=== PATIENT | female | born 1940 | race Hispanic/Latino ===

== ENCOUNTER 2021-10-02 13:51 | Observation (INO) | payer MEDICARE ==
[2021-10-02] MEDS ORDERED: DUONEB 0.5-3 MG/3 ml Neb IH ONE ×2 (15:27→15:42)
[2021-10-02 15:36] LABS: Absolute Neutrophil Ct (ANC) 4.53 (1.4-6.9); Basophil (Absolute #) 0.01 (0-0.4); Eosinophil % 0.2 % (0.00-5.0); Eosinophil (Absolute #) 0.01 (0-0.5); Hematocrit 43.4 % (35-47); Hemoglobin 13.6 gm/dl (12.0-16.0); Lymphocyte (Absolute #) 0.74 (1.0-4.6); Lymphocytes % 13.1 % (24.0-44.0); Mean Corpuscular Hemoglobin 27.6 pg (26-32); Mean Corpuscular Hgb Concent. 31.3 g/dl (32-36); Mean Platelet Volume 11.6 fl (7.5-11.0); Monocyte (Absolute #) 0.37 (0.0-1.3); Monocytes % 6.5 % (0.0-12.0); Platelet Count 151 K/mm3 (150-450); Red Blood Count 4.93 M/mm3 (4.1-5.4); Red Cell Distribution Width 14.8 % (11.5-14.0); White Blood Count 5.7 K/mm3 (4.0-10.5)
[2021-10-02] MEDS ORDERED: DECADRON 10MG INJ. IV ONE (15:42)
--- NOTE | 2021-10-02 15:44 | ERPHSYRPT ---
- History of Present Illness Time Seen by Provider: 10/02/21 14:56 Historian: patient Exam Limitations: no limitations Patient Subjective Stated Complaint: "I can't breath." Triage Nursing Assessment: 80 y/o female with significant PMH of COPD, HTN, CVA, and GERD. She uses PRN supplemental oxygen 2 L/min via NC at night. Reported having increased cough, dyspnea, and left sided chest pain at home. Took a home COVID test on 10/02/21 and was positive. Has had to use her home O2 throghout the day d/t the increased dyspnea. Pain described as pressure and non- radiating. Denied nausea/vomiting/diarrhea/dysuria. Pupils 3mm bilateral. Oral mucosa pink/moist without ulcerations/lesions. Neck supple without JVD/bruits/thrills. Symmetrical chest expansion. heart tone S1/S2 RRR without extra sounds. Lungs with insp/exp coarse wheezes and diminished movement in the bases. Abdomen soft non-distened, non-surgical, and without peritoneal signs. bowel sounds present. No organomegaly/pulsatile masses. peripheral pulses +2 bilateral without dependent edema. Physician History: Patient is 80-year-old female presents to our ED with complaints of shortness of breath. Patient has a history of COPD. Patient recently tested Covid positive. Patient requires oxygen at home as needed. Patient states her shortness of breath is requiring oxygen for improvement. Symptoms are constant. Symptoms have been ongoing for 1 day. Shortness of breath associated with a dry nonproductive cough. Symptoms are moderate in intensity. Exertion worsens symptoms. Patient is also experiencing left-sided chest pressure. Patient voices no other complaints concerns at this time. Timing/Duration: yesterday Activities at Onset: none Quality: aching Location: substernal Chest Pain Radiation: no radiation Severity of Pain-Max: moderate Severity of Pain-Current: mild Modifying Factors: Improves With: nothing Associated Symptoms: shortness of breath Prior Chest Pain/Cardiac Workup: no prior chest pain Nitro Today/Relief: no nitro taken today Aspirin Treatment Today: no aspirin today Allergies/Adverse Reactions: No Known Drug Allergies Allergy (Verified 10/02/21 15:13) Home Medications: Omeprazole 20 MG [Prilosec 20 mg] 20 mg PO BID 07/26/12 [History] Ferrous Sulfate 325 mg PO DAILY 10/02/21 [History] Fluticasone/Umeclidin/Vilanter [Trelegy Ellipta 100-62.5-25] 1 puff IH BID 10/02/21 [History] Meloxicam 7.5 mg PO DAILY 10/02/21 [History] Metformin HCl 500 mg [Glucophage 500 MG] 500 mg PO BIDWM 10/02/21 [History] Hx Tetanus, Diphtheria Vaccination/Date Given: (UNKNOWN) Hx Influenza Vaccination/Date Given: Yes (2012) Hx Pneumococcal Vaccination/Date Given: No (UNKNOWN) Travel Risk - International Travel Have you traveled outside of the country in past 3 weeks: No - Coronavirus Screening Are you exhibiting any of the following symptoms?: Yes Symptoms: Cough: New Onset, Shortness of Breath Close contact with a COVID-19 positive Pt in past 14-21 Days: No - Vaccine Status Have you recieved a Covid-19 vaccination: No - Review of Systems Constitutional: No Symptoms, No Fever, No Chills Eyes: No Symptoms Ears, Nose, & Throat: No Symptoms Respiratory: No Symptoms, No Cough, No Dyspnea Cardiac: No Symptoms, No Chest Pain, No Edema, No Syncope Abdominal/Gastrointestinal: No Symptoms, No Abdominal Pain, No Nausea, No Vomiting, No Diarrhea Genitourinary Symptoms: No Symptoms, No Dysuria Musculoskeletal: No Symptoms, No Back Pain, No Neck Pain Skin: No Symptoms, No Rash Neurological: No Symptoms, No Dizziness, No Focal Weakness, No Sensory Changes Psychological: No Symptoms Endocrine: No Symptoms Hematologic/Lymphatic: No Symptoms Immunological/Allergic: No Symptoms All Other Systems: Reviewed and Negative - Past Medical History Pertinent Past Medical History: Yes Neurological History: Stroke ENT History: No Pertinent History Cardiac History: Hypertension Respiratory History: COPD Endocrine Medical History: Diabetes Type II Musculoskeletal History: Arthritis GI Medical History: GERD History: No Pertinent History Psycho-Social History: Anxiety, Depression Female Reproductive Disorders: No Pertinent History Other Medical History: PT POOR HISTORIAN - Past Surgical History Past Surgical History: Yes Neuro Surgical History: No Pertinent History Cardiac: Other Respiratory: No Pertinent History Gastrointestinal: Appendectomy Female Surgical History: Hysterectomy Other Surgical History: PT states has a filter - Social History Smoking Status: Former smoker Exposure to second hand smoke: Yes Drug Use: none Patient Lives Alone: No - Female History Hx Now: No - Nursing Vital Signs Nursing Vital Signs: Initial Vital Signs Pulse Rate 95 H 10/02/21 14:52 Respiratory Rate 16 10/02/21 14:52 Blood Pressure 110/63 10/02/21 14:52 O2 Sat by Pulse Oximetry 92 L 10/02/21 14:52 Pain Scale Pain Intensity 6 - Physical Exam General Appearance: no apparent distress, alert Eye Exam: PERRL/EOMI, eyes nml inspection Ears, Nose, Throat Exam: normal ENT inspection, moist mucous membranes Neck Exam: normal inspection, non-tender, supple, full range of motion Respiratory Exam: normal breath sounds, lungs clear, No respiratory distress Cardiovascular Exam: regular rate/rhythm, normal heart sounds Gastrointestinal/Abdomen Exam: soft, No tenderness, No mass Back Exam: normal inspection, No CVA tenderness, No vertebral tenderness Extremity Exam: normal inspection, normal range of motion Neurologic Exam: alert, oriented x 3, cooperative, normal mood/affect, sensation nml, No motor deficits Skin Exam: normal color, warm, dry SpO2: 92 - Course Nursing assessment & vital signs reviewed: Yes EKG Interpreted by Me: RATE (95), Sinus Rhythm, NORMAL AXIS, NORMAL INTERVALS (Old inferior infarct anterior Q waves possibly due to LVH.) - Radiology Exams Chest X-ray Interpretation: Interpreted by me (Patchy opacity left lower lung. Bibasilar atelectasis. Normal cardiac silhouette. Osteopenia. Intact bony thorax.) Ordered Tests: Active Orders 24 hr Category Date Time Status First Calender Worker STAT Care 10/02/21 15:29 Active Cath for Specimen-Straight STAT Care 10/02/21 15:29 Active EKG-ER Only STAT Care 10/02/21 15:27 Active IV Insertion STAT Care 10/02/21 15:27 Active Pulse Oximetry (ED) STAT Care 10/02/21 15:27 Active CHEST 1 VIEW (PORTABLE) Stat Exams 10/02/21 15:28 Completed BLOOD CULTURE Stat Lab 10/02/21 14:00 Received BLOOD CULTURE Stat Lab 10/02/21 17:20 Received CBC W DIFF Stat Lab 10/02/21 15:00 Completed CMP Stat Lab 10/02/21 15:00 Completed Lactic Acid Stat Lab 10/02/21 15:27 Completed NT PRO BNP Stat Lab 10/02/21 15:00 Completed TROPONIN Q3H Lab 10/02/21 15:00 Completed TROPONIN Q3H Lab 10/02/21 18:30 Ordered TROPONIN Q3H Lab 10/02/21 21:30 Ordered TROPONIN Q3H Lab 10/03/21 00:30 Ordered TROPONIN Q3H Lab 10/03/21 03:30 Ordered Respiratory Therapy Assessment ONCE RT 10/02/21 15:54 Completed Medication Summary Discontinued Medications Generic Name Dose Route Start Last Admin Trade Name Mitulq PRN Reason Stop Dose Admin Albuterol/Ipratropium 3 ml 10/02/21 15:27 10/02/21 15:53 Ipratropium/Albuterol Sulfate 3 Ml Ampul.Neb IH 10/02/21 15:28 3 ml STAT ONE Administration Albuterol/Ipratropium Confirm 10/02/21 15:42 Ipratropium/Albuterol Sulfate 3 Ml Ampul.Neb Administered 10/02/21 15:43 Dose 3 ml IH .STK-MED ONE Dexamethasone Sodium Phosphate 8 mg 10/02/21 15:42 10/02/21 15:56 Dexamethasone Sod Phosphate 10 Mg/Ml IV 10/02/21 15:43 8 mg STAT ONE Administration Dexamethasone Sodium Phosphate Confirm 10/02/21 15:54 Dexamethasone Sod Phosphate 10 Mg/Ml Administered 10/02/21 15:55 Dose 10 mg .ROUTE .STK-MED ONE Azithromycin 500 mg in 250 mls @ 250 mls/hr 10/02/21 16:20 10/02/21 17:33 Zithromax 500 Mg/ 250 Ml Nacl Premix IV 10/02/21 17:19 250 mls/hr STAT STA 250 mls/hr Administration Ceftriaxone Sodium/Dextrose 2 g in 50 mls @ 100 mls/hr 10/02/21 16:20 10/02/21 17:32 Rocephin 2 Gm-D5w 50ml Bag IV 10/02/21 16:49 100 mls/hr STAT STA 100 mls/hr Administration Azithromycin Confirm 10/02/21 17:31 Zithromax 500 Mg/ 250 Ml Nacl Premix Administered 10/02/21 17:32 Dose 500 mg in 250 mls @ ud IV .STK-MED ONE Ceftriaxone Sodium/Dextrose Confirm 10/02/21 17:31 Rocephin 2 Gm-D5w 50ml Bag Administered 10/02/21 17:32 Dose 2 g in 50 mls @ ud IV .STK-MED ONE Ondansetron HCl 4 mg 10/02/21 17:15 10/02/21 17:32 Ondansetron Hcl 4 Mg/2 Ml Vial IV 10/02/21 17:16 4 mg STAT ONE Administration Ondansetron HCl Confirm 10/02/21 17:31 Ondansetron Hcl 4 Mg/2 Ml Vial Administered 10/02/21 17:32 Dose 4 mg .ROUTE .STK-MED ONE Lab/Rad Data: Laboratory Result Diagrams 10/02/21 15:00 10/02/21 15:00 Laboratory Results 10/02/21 10/02/21 10/02/21 Range/Units 16:28 15:27 15:00 WBC (4.0-10.5) K/mm3 RBC (4.1-5.4) M/mm3 Hgb (12.0-16.0) gm/dl Hct (35-47) % MCV (78-100) fl MCH (26-32) pg MCHC (32-36) g/dl RDW (11.5-14.0) % Plt Count (150-450) K/mm3 MPV (7.5-11.0) fl Gran % (36.0-66.0) % Eos # (Auto) (0-0.5) Absolute Lymphs (auto) (1.0-4.6) Absolute Monos (auto) (0.0-1.3) Lymphocytes % (24.0-44.0) % Monocytes % (0.0-12.0) % Eosinophils % (0.00-5.0) % Basophils % (0.0-0.4) % Absolute Granulocytes (1.4-6.9) Basophils # (0-0.4) Sodium (137-145) mmol/L Potassium (3.5-5.1) mmol/L Chloride (98-107) mmol/L Carbon Dioxide (22-30) mmol/L Anion Gap (5-15) MEQ/L BUN (7-17) mg/dL Creatinine (0.52-1.04) mg/dL Estimated GFR ML/MIN Glucose (74-106) mg/dL Lactic Acid 1.4 (0.4-2.0) Calcium (8.4-10.2) mg/dL Total Bilirubin (0.2-1.3) mg/dL AST (14-36) U/L ALT (0-35) U/L Alkaline Phosphatase (38-126) U/L Troponin I 0.026 (0.000-0.034) ng/mL NT-Pro-B Natriuret Pep (0-1800) pg/mL Serum Total Protein (6.3-8.2) g/dL Albumin (3.5-5.0) g/dL Influenza Type A Ag NEGATIVE (NEGATIVE) Influenza Type B Ag NEGATIVE (NEGATIVE) RSV (PCR) NEGATIVE (Negative) SARS-CoV-2 (PCR) POSITIVE A (NEGATIVE) 10/02/21 10/02/21 Range/Units 15:00 15:00 WBC 5.7 (4.0-10.5) K/mm3 RBC 4.93 (4.1-5.4) M/mm3 Hgb 13.6 (12.0-16.0) gm/dl Hct 43.4 (35-47) % MCV 88.0 (78-100) fl MCH 27.6 (26-32) pg MCHC 31.3 L (32-36) g/dl RDW 14.8 H (11.5-14.0) % Plt Count 151 (150-450) K/mm3 MPV 11.6 H (7.5-11.0) fl Gran % 80.0 H (36.0-66.0) % Eos # (Auto) 0.01 (0-0.5) Absolute Lymphs (auto) 0.74 L (1.0-4.6) Absolute Monos (auto) 0.37 (0.0-1.3) Lymphocytes % 13.1 L (24.0-44.0) % Monocytes % 6.5 (0.0-12.0) % Eosinophils % 0.2 (0.00-5.0) % Basophils % 0.2 (0.0-0.4) % Absolute Granulocytes 4.53 (1.4-6.9) Basophils # 0.01 (0-0.4) Sodium 135 L (137-145) mmol/L Potassium 5.1 (3.5-5.1) mmol/L Chloride 101 (98-107) mmol/L Carbon Dioxide 23 (22-30) mmol/L Anion Gap 17.0 H (5-15) MEQ/L BUN 50 H (7-17) mg/dL Creatinine 2.81 H (0.52-1.04) mg/dL Estimated GFR 17.1 ML/MIN Glucose 149 H (74-106) mg/dL Lactic Acid (0.4-2.0) Calcium 8.9 (8.4-10.2) mg/dL Total Bilirubin 0.50 (0.2-1.3) mg/dL AST 41 H (14-36) U/L ALT 20 (0-35) U/L Alkaline Phosphatase 110 (38-126) U/L Troponin I (0.000-0.034) ng/mL NT-Pro-B Natriuret Pep 156 (0-1800) pg/mL Serum Total Protein 6.8 (6.3-8.2) g/dL Albumin 4.0 (3.5-5.0) g/dL Influenza Type A Ag (NEGATIVE) Influenza Type B Ag (NEGATIVE) RSV (PCR) (Negative) SARS-CoV-2 (PCR) (NEGATIVE) - Progress Progress: improved Air Movement: good Progress Note: Patient continues to feel short of breath. She is Covid positive. Chest x-ray shows a patchy left lower lobe opacity. Patient is hypoxic at 92%. Patient does use oxygen as needed at home. We will admit to the Covid unit. Case discussed with Dr. Talbot who accepts admission. Plan of care discussed with patient patient agrees to admission [facility] for further evaluation and treatment. Portions of this note were created with voice recognition technology. There may be grammatical, spelling, punctuation or sound alike errors 10/02/21 18:04 Blood Culture(s) Obtained: Yes Antibiotics given: Yes Will see patient in: hospital (observation) Counseled pt/family regarding: lab results, diagnosis, need for follow-up, rad results - Departure Departure Disposition: Observation Clinical Impression: Hypoxia, Acute renal injury, COPD (chronic obstructive pulmonary disease), SOB (shortness of breath) Condition: Stable Critical Care Time: No Referrals: ZAK PANIAGUA [Primary Care Provider] - Follow up/PCP as directed Instructions: Chronic Obstructive Pulmonary Disease
[2021-10-02 15:54] LABS: BILIRUBIN,TOTAL 0.5 mg/dL (0.2-1.3); Calcium 8.9 mg/dL (8.4-10.2); Creatinine 1 2.81 mg/dL (0.52-1.04); EST GLOMERULAR FILTRATION RATE 17.1 ML/MIN; Potassium 5.1 mmol/L (3.5-5.1); Total Protein 6.8 g/dL (6.3-8.2)
[2021-10-02] MEDS ORDERED: DECADRON 10MG INJ. ONE (15:54)
[2021-10-02] MEDS ORDERED: Zithromax 500 MG/ 250 ML NaCl Premix 500 MG/250 ML IVPB IV STA (16:20)
[2021-10-02] MEDS ORDERED: ROCEPHIN 2 Gm-D5w 50ML BAG** 2 G/50 ML IVPB IV STA (16:20)
--- NOTE | 2021-10-02 16:29 | XRAY ---
Indication: Short of breath. Suspect Covid 19. Comparison: July 26, 2012. Portable chest again demonstrates left mid to lower lung infiltrate/atelectasis. New right base subsegmental atelectasis/scarring. Remaining heart and upper lungs unremarkable. Bony thorax intact again with osteopenia, degenerative changes, and scoliosis.
[2021-10-02 17:15] LABS: INFLUENZA A NEGATIVE (NEGATIVE); INFLUENZA B NEGATIVE (NEGATIVE); RESPIRATORY SYNCTIAL VIRUS NEGATIVE (Negative)
[2021-10-02] MEDS ORDERED: Zofran 4 MG/2 ML VIAL IV ONE (17:15)
[2021-10-02 17:21] LABS: SARS-CoV-2 Xpert Express POSITIVE (NEGATIVE)
[2021-10-02] MEDS ORDERED: Zofran 4 MG/2 ML VIAL ONE (17:31)
[2021-10-02] MEDS ORDERED: Zithromax 500 MG/ 250 ML NaCl Premix 500 MG/250 ML IVPB IV ONE (17:31)
[2021-10-02] MEDS ORDERED: ROCEPHIN 2 Gm-D5w 50ML BAG** 2 G/50 ML IVPB IV ONE (17:31)
[2021-10-02] MEDS ORDERED: ENOXAPARIN SODIUM SQ ONE (18:28)
[2021-10-02] MEDS ORDERED: TYLENOL 325 MG PO PRN (20:05)
[2021-10-02] MEDS ORDERED: VENTOLIN COMMON CANISTER IH PRN (20:05)
[2021-10-02] MEDS ORDERED: REMDESIVIR 200 MG in Sodium Chloride 0.9% 250 ML 250 ML IV ONE (20:54)
[2021-10-02] MEDS ORDERED: Ativan 2 MG/1 ML VIAL IV PRN (20:54)
[2021-10-02] MEDS ORDERED: HYDROCODONE-CHLORPHEN ER SUSP PO PRN (20:54)
[2021-10-02] MEDS ORDERED: TYLENOL EXTRA STRENGTH 500 MG PO PRN (20:54)
[2021-10-02] MEDS ORDERED: Ativan 1 MG PO PRN (20:54)
[2021-10-02] MEDS ORDERED: Sodium Chloride 0.9% 250 ML 250 ML IV ONE (21:02)
[2021-10-02] MEDS ORDERED: REMDESIVIR IV ONE (21:02)
[2021-10-03 04:50] LABS: Absolute Neutrophil Ct (ANC) 2.22 (1.4-6.9); Basophil (Absolute #) 0 (0-0.4); Eosinophil (Absolute #) 0 (0-0.5); Hematocrit 41.2 % (35-47); Hemoglobin 12.8 gm/dl (12.0-16.0); Lymphocyte (Absolute #) 0.45 (1.0-4.6); Lymphocytes % 16.1 % (24.0-44.0); Mean Cell Volume 89.4 fl (78-100); Mean Corpuscular Hemoglobin 27.8 pg (26-32); Mean Corpuscular Hgb Concent. 31.1 g/dl (32-36); Mean Platelet Volume 11.3 fl (7.5-11.0); Monocyte (Absolute #) 0.12 (0.0-1.3); Monocytes % 4.3 % (0.0-12.0); Neutrophil % 79.6 % (36.0-66.0); Platelet Count 142 K/mm3 (150-450); Red Blood Count 4.61 M/mm3 (4.1-5.4); Red Cell Distribution Width 14.7 % (11.5-14.0); White Blood Count 2.8 K/mm3 (4.0-10.5)
[2021-10-03 04:59] LABS: ALBUMIN 3.7 g/dL (3.5-5.0); ANION GAP 15.4 MEQ/L (5-15); BILIRUBIN,TOTAL 0.3 mg/dL (0.2-1.3); Creatinine 1 2.55 mg/dL (0.52-1.04); EST GLOMERULAR FILTRATION RATE 19.2 ML/MIN; Potassium 5.1 mmol/L (3.5-5.1); Total Protein 6.5 g/dL (6.3-8.2)
[2021-10-03] MEDS ORDERED: ADVAIR/WIXELLA 250-50 DISKUS 14 DOSE IH SCH (07:00)
[2021-10-03 07:24] VITALS: BP 160/88; PULSE 76; O2SAT 92
[2021-10-03] MEDS ORDERED: HUMALOG SQ PRN (07:32)
[2021-10-03] MEDS ORDERED: ENOXAPARIN SODIUM SQ SCH (10:00)
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
[2021-10-03] MEDS ORDERED: REMDESIVIR 100 MG in Sodium Chloride 0.9% 100 ML BAG 100 ML IV SCH (21:00)
== END 2021-10-03 11:10 | disposition home or self-care (01) ==
LOC: ED 13:51 → MED SURG 19:35
PROVIDERS: ADMIT Family Medicine; ATTEND Family Medicine
DX: U07.1 COVID-19 (principal); J44.1 Chronic obstructive pulmonary disease with (acute) exacerbation; F32.A Depression, unspecified; I10 Essential (primary) hypertension; E11.9 Type 2 diabetes mellitus without complications; Z99.81 Dependence on supplemental oxygen; Z79.899 Other long term (current) drug therapy
CPT/HCPCS: 0241U; 36000; 36415; 71045; 80053; 82947; 83605; 83880; 84484; 85025; 85379; 87040; 93005; 93041; 93268; 94640; 94760; 94762; 96365; 96372; 96374; 96375; 99285; G0378; J0248; J0456; J0696; J1100; J1650; J1817; J2405; A9270-GY

== ENCOUNTER 2021-11-21 13:40 | Emergency (ER) | payer MEDICARE ==
--- NOTE | 2021-11-21 13:43 | ERPHSYRPT ---
- History of Present Illness Time Seen by Provider: 11/21/21 13:42 Source: patient Exam Limitations: other (Patient is poor historian) Physician History: This is an 81-year-old female who is a poor historian and presents with left lateral hip pain. Patient had a left hip surgery done within the last couple months out of [facility]. Patient does not know the specifics at this time. Patient has a history of gastroesophageal reflux disease, diabetes, hypertension, anxiety, depression, COPD (as needed oxygen use) and TIAs. Patient's family did report that the patient sits in her chair often and has had a heating pad to the skin of the left hip on occasion. In the last couple days they noticed blistering and redness of the skin to the lateral aspect of the left hip. Patient does ambulate with a walker. Timing/Duration: day(s) (2 days) Context: other (No fall or injury) Quality: burning, sharpness Hip Pain Location: hip (L) Severity of Pain-Max: mild Severity of Pain-Current: mild Modifying Factors: Improves With: movement Allergies/Adverse Reactions: No Known Drug Allergies Allergy (Verified 11/21/21 13:51) Home Medications: Cholecalciferol (Vitamin D3) [Vitamin D] 50,000 unit PO WEEKLY 10/02/21 [History] Ferrous Sulfate 325 mg PO DAILY 10/02/21 [History] Lisinopril 10 mg [Zestril 10 MG] 20 mg PO DAILY 10/02/21 [History] Metformin HCl 500 mg [Glucophage 500 MG] 500 mg PO BIDWM 10/02/21 [History] Hx Tetanus, Diphtheria Vaccination/Date Given: (UNKNOWN) Hx Influenza Vaccination/Date Given: Yes (2011) Hx Pneumococcal Vaccination/Date Given: No (UNKNOWN) Travel Risk - International Travel Have you traveled outside of the country in past 3 weeks: No - Coronavirus Screening Are you exhibiting any of the following symptoms?: No Close contact with a COVID-19 positive Pt in past 14-21 Days: No - Vaccine Status Have you recieved a Covid-19 vaccination: No - Review of Systems Constitutional: No Symptoms Eyes: No Symptoms Ears, Nose, & Throat: No Symptoms Respiratory: No Symptoms Cardiac: No Symptoms Abdominal/Gastrointestinal: No Symptoms Genitourinary Symptoms: No Symptoms Musculoskeletal: No Symptoms Skin: Cellulitis (Blisters left lateral hip with localized cellulitis) Neurological: No Symptoms Psychological: No Symptoms Endocrine: No Symptoms Hematologic/Lymphatic: No Symptoms Immunological/Allergic: No Symptoms All Other Systems: Reviewed and Negative - Past Medical History Pertinent Past Medical History: Yes Neurological History: Stroke ENT History: No Pertinent History Cardiac History: Hypertension Respiratory History: COPD Endocrine Medical History: Diabetes Type II Musculoskeletal History: Arthritis GI Medical History: GERD History: No Pertinent History Psycho-Social History: Anxiety, Depression Female Reproductive Disorders: No Pertinent History Other Medical History: PT POOR HISTORIAN - Past Surgical History Past Surgical History: Yes Neuro Surgical History: No Pertinent History Cardiac: Other Respiratory: No Pertinent History Gastrointestinal: Appendectomy Genitourinary: No Pertinent History Musculoskeletal: No Pertinent History Female Surgical History: Hysterectomy Other Surgical History: PT states has a filter - Social History Smoking Status: Former smoker Exposure to second hand smoke: No Drug Use: none Patient Lives Alone: No - Nursing Vital Signs Nursing Vital Signs: Initial Vital Signs Temperature 99.1 F 11/21/21 13:56 Pulse Rate 89 11/21/21 13:56 Respiratory Rate 18 11/21/21 13:56 Blood Pressure 170/71 11/21/21 13:56 O2 Sat by Pulse Oximetry 97 11/21/21 13:56 Pain Scale Pain Intensity 5 - Physical Exam General Appearance: no apparent distress, alert, anxiety Eye Exam: PERRL/EOMI, eyes nml inspection Ears, Nose, Throat Exam: normal ENT inspection, moist mucous membranes Neck Exam: normal inspection, non-tender, supple, full range of motion Respiratory Exam: airway intact, No chest tenderness, No respiratory distress Gastrointestinal Exam: No tenderness Pelvic Exam: not done Rectal Exam: not done Back Exam: normal inspection, normal range of motion, No CVA tenderness, No vertebral tenderness Extremity Exam: normal range of motion, pelvis stable, inflammation (Skin of left lateral hip) Neurologic Exam: alert, oriented x 3, cooperative, contract engineer II-XII nml as tested, normal mood/affect Skin Exam: other (Skin blisters left lateral hip with localized cellulitis. No palpable abscess. Surgical incision site is more medial to the blister site and it is intact without evidence of infection.) Lymphatic Exam: No adenopathy SpO2 Interpretation: normal O2 Delivery: Room Air Ordered Tests: Active Orders 24 hr Category Date Time Status IV Insertion STAT Care 11/21/21 14:46 Ordered PELVIS WITHOUT CONTRAST [CT] Stat Exams 11/21/21 14:11 Completed - Progress Progress: pain not gone completely, re-examined Progress Note: 11/21/21 14:47 CAT scan of the pelvis without contrast shows left hip surgical repair site intact. No underlying abscess. Counseled pt/family regarding: diagnosis, need for follow-up, rad results - Departure Departure Disposition: Home Clinical Impression: Cellulitis Condition: Stable Critical Care Time: No Referrals: ZAK PANIAGUA [Primary Care Provider] - Follow up/PCP as directed Additional Instructions: Keep site clean daily with soap and water. Do not use the heating pad any longer. Apply the antibiotic ointment as prescribed. Take the oral antibiotics as prescribed. Follow-up with your primary care physician for further evaluation and management. Prescriptions: Mupirocin [Bactroban OINTMENT] 1 applic TP TID 5 Days #1 unit Cephalexin Mh 500 mg [Keflex 500 mg] 500 mg PO TID #21 cap
[2021-11-21 14:02] VITALS: O2SAT 97
--- NOTE | 2021-11-21 14:38 | XRAY ---
Indication: Pain, erythema, and blistering site of left hip surgery 2 years ago. Multiple contiguous images obtained through the pelvis without contrast with special attention to the osseous structures. Sagittal and coronal reformatted images obtained. Comparison: None Osseous structures demineralized consistent with patient's age. Mild degenerative changes of visualized lower lumbar spine and both SI joints. Left total hip arthroplasty with intact bipolar prosthesis and 2 acetabular screws produces beam artifact. Tiny heterotopic ossifications lateral to the left hip joint presumed postsurgical. No acute fracture, suspicious bony lesions, or osseous destructive process. Visualized noncontrasted soft tissues demonstrates sigmoid diverticulosis, partially visualized IVC filter, and mild diffuse scattered vascular calcifications. There is no focal solid/cystic soft tissue mass or abnormal fluid collection. Impression: 1. Osteopenia, degenerative changes, and intact left total hip arthroplasty. 2. Incidental sigmoid diverticulosis and scattered arteriosclerotic calcifications. 3. Remaining CT pelvis without contrast exam is negative.
[2021-11-21] MEDS ORDERED: ROCEPHIN 1 Gm-D5w 50 ml Bag** 1 G/50 ML IVPB IV STA (14:44)
[2021-11-21] MEDS ORDERED: BACIGUENT PACKET TP ONE (14:47)
[2021-11-21] MEDS ORDERED: BACIGUENT PACKET ONE (14:48)
[2021-11-21] MEDS ORDERED: ROCEPHIN 1 Gm-D5w 50 ml Bag** 1 G/50 ML IVPB IV ONE (14:48)
[2021-11-21 15:00] VITALS: BP 151/79; PULSE 76
== END 2021-11-21 15:04 | disposition home or self-care (01) ==
LOC: ED 13:40
DX: L03.116 Cellulitis of left lower limb (principal); M25.552 Pain in left hip; I10 Essential (primary) hypertension; J44.9 Chronic obstructive pulmonary disease, unspecified; K21.9 Gastro-esophageal reflux disease without esophagitis; E11.9 Type 2 diabetes mellitus without complications; Z79.84 Long term (current) use of oral hypoglycemic drugs; Z79.899 Other long term (current) drug therapy
CPT/HCPCS: 36000; 72192; 96365; 99284; J0696; A9270-GY

== ENCOUNTER 2022-03-26 06:27 | Emergency (ER) | payer MEDICARE ==
[2022-03-26] MEDS ORDERED: Adacel Vial IM ONE ×2 (07:26→07:29)
--- NOTE | 2022-03-26 07:33 | ERPHSYRPT ---
- History of Present Illness Source: patient Exam Limitations: no limitations Patient Subjective Stated Complaint: pt states "I was taking out my trash and slipped on the steps and fell down." Triage Nursing Assessment: Pt presents to ED via SCAT 1, pt alert and oriented x 3, pt fell while taking trash out this morning and laid on the ground for about an hour until people jogging by found her on the ground, pt denies hitting head, pt has skin tear on L lower arm, bleeding controlled, pt denies any blood thinners Physician History: 81 yo F fell taking her trash out. She slipped and fell. Pt denies head injury/LOC and C-spine pain. She complains of T-spine pain, L hip pain(s/p L hip replacement), and L forearm pain. Occurred: just prior to arrival Reason for Fall: slipped Injuries/Pain Location: upper extremity (L forearm abrasion/pain), back (T-spine pain) Loss of Consciousness: no loss of consciousness Quality: aching Severity of Pain-Max: moderate Severity of Pain-Current: moderate Modifying Factors: Improves With: movement Associated Symptoms (Fall): back pain, extremity injury, No abdominal pain, No confusion, No chest pain, No dizziness, No headache, No lightheadedness, No muscle spasms, No nausea, No neck pain, No ringing in ears, No seizures, No shortness of breath, No slurred speech, No trouble walking, No vomiting, No vision changes Allergies/Adverse Reactions: No Known Drug Allergies Allergy (Verified 03/26/22 06:29) Home Medications: Cholecalciferol (Vitamin D3) [Vitamin D] 50,000 unit PO WEEKLY 10/02/21 [History] Ferrous Sulfate 325 mg PO DAILY 10/02/21 [History] Lisinopril 10 mg [Zestril 10 MG] 20 mg PO DAILY 10/02/21 [History] Metformin HCl 500 mg [Glucophage 500 MG] 500 mg PO BIDWM 10/02/21 [History] Hx Tetanus, Diphtheria Vaccination/Date Given: Yes Hx Influenza Vaccination/Date Given: Yes Hx Pneumococcal Vaccination/Date Given: No Immunizations Up to Date: No Travel Risk - International Travel Have you traveled outside of the country in past 3 weeks: No - Coronavirus Screening Are you exhibiting any of the following symptoms?: No Close contact with a COVID-19 positive Pt in past 14-21 Days: No - Vaccine Status Have you recieved a Covid-19 vaccination: Yes 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 - Vaccination Dates Dates if Unknown: unknown - Review of Systems Constitutional: No Symptoms Eyes: No Symptoms Ears, Nose, & Throat: No Symptoms Respiratory: No Symptoms Cardiac: No Symptoms Abdominal/Gastrointestinal: No Symptoms Genitourinary Symptoms: No Symptoms Musculoskeletal: No Symptoms Skin: No Symptoms Neurological: No Symptoms Psychological: No Symptoms Endocrine: No Symptoms Hematologic/Lymphatic: No Symptoms Immunological/Allergic: No Symptoms - Past Medical History Pertinent Past Medical History: Yes Neurological History: Stroke ENT History: No Pertinent History Cardiac History: Hypertension Respiratory History: COPD Endocrine Medical History: Diabetes Type II Musculoskeletal History: Arthritis GI Medical History: GERD History: No Pertinent History Psycho-Social History: Anxiety, Depression Female Reproductive Disorders: No Pertinent History Other Medical History: PT POOR HISTORIAN - Past Surgical History Past Surgical History: Yes Neuro Surgical History: No Pertinent History Cardiac: Other Respiratory: No Pertinent History Gastrointestinal: Appendectomy Genitourinary: No Pertinent History Musculoskeletal: No Pertinent History Female Surgical History: Hysterectomy Other Surgical History: PT states has a filter - Social History Smoking Status: Former smoker Exposure to second hand smoke: No Drug Use: none Patient Lives Alone: No Significant Family History: no pertinent family hx - Nursing Vital Signs Nursing Vital Signs: Initial Vital Signs Temperature 97.0 F 03/26/22 06:30 Pulse Rate 67 03/26/22 06:30 Respiratory Rate 16 03/26/22 06:30 Blood Pressure 199/77 03/26/22 06:30 O2 Sat by Pulse Oximetry 94 L 03/26/22 06:30 Pain Scale Pain Intensity 3 Hypertensive - Cristian Coma Score Best Eye Response (Cristian): (4) open spontaneously Best Verbal Response (Cristian): (5) oriented Best Motor Response ([place]): (6) obeys commands [place] Total: 15 - Physical Exam General Appearance: no apparent distress Head Injury: no evidence of injury Eye Exam: PERRL/EOMI, eyes nml inspection ENT Exam: airway nml, No evidence of ENT injury, No clear fluid (ears), No clear fluid (nose) Neck Exam: supple, trachea midline, full range of motion (C-spine NTTP) Respiratory/Chest Exam: normal breath sounds, No chest tenderness, No respiratory distress (Pt is 2L O2 NC dependent) Cardiovascular Exam: normal heart sounds, regular rate/rhythm, normal peripheral pulses, No murmur Gastrointestinal Exam: soft, normal bowel sounds, No tenderness Back Exam: vertebral tenderness (T-spine TTP/L scapular area TTP) Extremity Exam: pelvis stable (L hip TTP/No shortening or external rotation), other (L forearm abrasions and TTP) Peripheral Pulses: carotid (R): 2+, carotid (L): 2+ Neurologic Exam: alert, oriented x 3, cooperative, bead cutter II-XII nml as tested, normal mood/affect, sensation nml, No motor deficits, No sensory deficit Skin Exam: normal color, warm, dry, No rash SpO2 Interpretation: normal SpO2: 94 O2 Delivery: Nasal Cannula - Course Nursing assessment & vital signs reviewed: Yes - Radiology Exams Forearm X-ray Interpretation: Discussed w/ radiologist (L forearm neg) Femur X-ray Interpretation: Discussed w/ radiologist (L femur neg) - CT Exams Chest CT Interpretation: Discussed w/radiologist (NAD) Pelvis CT Interpretation: Tele-radiologist Report (NAD) Ordered Tests: Active Orders 24 hr Category Date Time Status CHEST WITHOUT CONTRAST [CT] Stat Exams 03/26/22 07:24 Completed FEMUR Stat Exams 03/26/22 Completed FOREARM Stat Exams 03/26/22 Completed PELVIS WITHOUT CONTRAST [CT] Stat Exams 03/26/22 07:24 Completed Medication Summary Discontinued Medications Generic Name Dose Route Start Last Admin Trade Name Stefan PRN Reason Stop Dose Admin Hydrocodone Bitart/Acetaminophen 1 tab 03/26/22 08:54 03/26/22 09:07 Hydrocodone/Apap 5/325 Mg Tablet PO 03/26/22 08:55 1 tab STAT ONE Administration Hydrocodone Bitart/Acetaminophen Confirm 03/26/22 09:07 Hydrocodone/Apap 5/325 Mg Tablet Administered 03/26/22 09:08 Dose 1 tab .ROUTE .STK-MED ONE Clonidine 0.1 mg 03/26/22 09:20 03/26/22 09:38 Clonidine Hcl 0.1 Mg Tablet PO 03/26/22 09:21 0.1 mg STAT ONE Administration Clonidine Confirm 03/26/22 09:37 Clonidine Hcl 0.1 Mg Tablet Administered 03/26/22 09:38 Dose 0.1 mg .ROUTE .STK-MED ONE Diphtheria/Tetanus/Acell Pertussis 0.5 ml 03/26/22 07:26 03/26/22 07:30 Tdap --Diph,Pertuss(Acell),Tet Vac/Pf 0.5 Ml Vial IM 03/26/22 07:27 0.5 ml .ONCE ONE Administration Diphtheria/Tetanus/Acell Pertussis Confirm 03/26/22 07:29 Tdap --Diph,Pertuss(Acell),Tet Vac/Pf 0.5 Ml Vial Administered 03/26/22 07:30 Dose 0.5 ml IM .STK-MED ONE - Progress Progress: improved Progress Note: 03/26/22 09:00 Norco5 po x1 03/26/22 09:33 0.1 po Clonidine 03/26/22 12:42 Pt ambulating in ER wo difficulty Pt advised to use her home O2 more regularly Counseled pt/family regarding: diagnosis, need for follow-up, rad results - Departure Departure Disposition: Home Clinical Impression: Contusion of hip, left, Back contusion, Contusion of left forearm, Forearm abrasion, Hypertension Condition: Stable Critical Care Time: No Referrals: ZAK PANIAGUA [Primary Care Provider] - Follow up/PCP as directed Instructions: Contusion (DC), Preventing Falls in Older Adults Additional Instructions: Ice to contused areas for 12-24 hours Use your walker Use your oxygen Follow up with your family MD in 1-2 days Return to ER as needed Motrin/Tylenol for pain
--- NOTE | 2022-03-26 08:38 | XRAY ---
Indication: Pelvic pain following fall. Multiple contiguous axial images obtained through the pelvis with special attention to the osseous structures. Sagittal and coronal reformatted images obtained. Comparison: November 21, 2021. Osseous structures remain demineralized with stable degenerative changes of the visualized lower lumbar spine and both SI joints. Again total left hip arthroplasty with intact bipolar prosthesis/acetabular screws. Stable tiny left hip heterotopic ossifications. Continued negative for acute fracture, dislocation, or suspicious bony lesions. Visualized noncontrasted soft tissues again demonstrate sigmoid diverticulosis, partially visualized IVC filter, and mild diffuse scattered vascular calcifications. No focal solid/cystic soft tissue mass or abnormal fluid collection. Impression: Stable osteopenia, degenerative changes, left total hip arthroplasty, sigmoid diverticulosis, and arteriosclerotic disease. No new/acute findings.
--- NOTE | 2022-03-26 08:42 | XRAY ---
Indication: Chest pain following fall. Multiple contiguous axial images obtained through the chest without contrast. Comparison: July 27, 2012 Lungs again demonstrates mild diffuse bilateral scattered fibrosis/scarring greatest near the lung bases. No new pulmonary mass, infiltrate, effusion, or pneumothorax. Heart not enlarged. Aorta minimally arteriosclerotic without aneurysm. No pathologic mediastinal lymphadenopathy. Stable small hiatal hernia. Bony thorax again demonstrates osteopenia and moderate double curvature scoliosis. Progressive worsening mild/moderate degenerative changes throughout the spine. No acute fracture or suspicious bony lesions. Limited upper abdomen remains unremarkable. Impression: 1. Again scattered pulmonary fibrosis/scarring, arteriosclerotic disease, small hiatal hernia, chronic bony findings. 2. Remaining CT chest without contrast exam is again negative.
--- NOTE | 2022-03-26 08:42 | XRAY ---
Indication: Pain following fall. Comparison: None 2 view left femur demonstrates osteopenia, total hip arthroplasty with intact bipolar prosthesis/acetabular screws, lateral hip heterotopic ossifications, moderate tricompartmental knee degenerative changes, and moderate scattered vascular calcifications. No other bony, articular, or soft tissue abnormalities.
--- NOTE | 2022-03-26 08:44 | XRAY ---
Indication: Pain following fall. Comparison: None 3 view left forearm demonstrates osteopenia and mild/moderate 1st metacarpal multangular scaphoid degenerative changes. No other bony, articular, or soft tissue abnormalities.
[2022-03-26] MEDS ORDERED: NORCO 5/325 MG PO ONE (08:54)
[2022-03-26] MEDS ORDERED: NORCO 5/325 MG ONE (09:07)
[2022-03-26] MEDS ORDERED: CLONIDINE 0.1 MG TABLET PO ONE (09:20)
[2022-03-26] MEDS ORDERED: CLONIDINE 0.1 MG TABLET ONE (09:37)
[2022-03-26 10:22] VITALS: BP 137/69; PULSE 74
[2022-03-26 10:24] VITALS: O2SAT 94
== END 2022-03-26 10:38 | disposition home or self-care (01) ==
LOC: ED 06:27
DX: S70.02XA Contusion of left hip, initial encounter (principal); S30.0XXA Contusion of lower back and pelvis, initial encounter; S50.12XA Contusion of left forearm, initial encounter; S50.812A Abrasion of left forearm, initial encounter; W10.9XXA Fall (on) (from) unspecified stairs and steps, initial encounter; Y93.E9 Activity, other interior property and clothing maintenance; Y92.007 Garden or yard of unspecified non-institutional (private) residence as the place of occurrence of the external cause; I10 Essential (primary) hypertension; J44.9 Chronic obstructive pulmonary disease, unspecified; E11.9 Type 2 diabetes mellitus without complications; Z79.84 Long term (current) use of oral hypoglycemic drugs; Z79.899 Other long term (current) drug therapy
CPT/HCPCS: 71250; 72192; 73090; 73552; 90471; 90715; 99284; A9270-GY

== ENCOUNTER 2023-12-01 08:14 | Emergency (ER) | payer MEDICARE ==
[2023-12-01 08:34] VITALS: PULSE 70; RESP 18; TEMP 97.7
[2023-12-01] MEDS ORDERED: Adacel Vial IM ONE (08:39)
[2023-12-01] MEDS: Adacel Vial IM ONE (08:41)
--- NOTE | 2023-12-01 08:42 | ERPHSYRPT ---
- History of Present Illness Time Seen by Provider: 12/01/23 08:26 Source: patient Exam Limitations: no limitations Patient Subjective Stated Complaint: C/O cat scratch to right foot that happened just prior to arrival in ER this am. Triage Nursing Assessment: Patient arrived in ER with a towel wrapped around her right foot. She is alert and oriented. NO SOB. SKin tone normal. Towel removed and dried blood noted to foot and towel. No current, active bleeding. Foot cleansed with NACL and hibiclens. A small puncture noted to top of right foot measuring 0.1cm X 0.3cm. Physician History: 83-year-old female unsure about tetanus status presented to the ER after she got scratched by a cat in her house. She is unsure about cats immunization status. Patient reported it was not a cat bite for sure but she jumped and accidentally scratched her right foot. Patient complaining of dull aching pain with palpation and movements. This superficial skin break. No numbness or tingling in the toes. No injury anywhere else. Allergies/Adverse Reactions: No Known Drug Allergies Allergy (Verified 12/01/23 08:26) Home Medications: Cholecalciferol (Vitamin D3) [Vitamin D] 50,000 unit PO WEEKLY 10/02/21 [History] Ferrous Sulfate 325 mg PO DAILY 10/02/21 [History] Lisinopril 10 mg [Zestril 10 MG] 20 mg PO DAILY 10/02/21 [History] Metformin HCl 500 mg [Glucophage 500 MG] 500 mg PO BIDWM 10/02/21 [History] Hx Tetanus, Diphtheria Vaccination/Date Given: No (NOT tetanus) Hx Influenza Vaccination/Date Given: Yes Hx Pneumococcal Vaccination/Date Given: No Immunizations Up to Date: No Travel Risk - International Travel Have you traveled outside of the country in past 3 weeks: No - Emerging Infectious Disease Are you exhibiting symptoms associated with any current EIDs: No - Review of Systems Constitutional: No Symptoms Ears, Nose, & Throat: No Symptoms Respiratory: No Symptoms Cardiac: No Symptoms Abdominal/Gastrointestinal: No Symptoms Musculoskeletal: Injury Skin: Skin Lesions Neurological: No Symptoms Endocrine: No Symptoms Hematologic/Lymphatic: No Symptoms - Past Medical History Pertinent Past Medical History: Yes Neurological History: Stroke ENT History: No Pertinent History Cardiac History: Hypertension Respiratory History: COPD Endocrine Medical History: Diabetes Type II Musculoskeletal History: Arthritis GI Medical History: GERD History: No Pertinent History Psycho-Social History: Anxiety, Depression Female Reproductive Disorders: No Pertinent History Other Medical History: PT POOR HISTORIAN - Past Surgical History Past Surgical History: Yes Neuro Surgical History: No Pertinent History Cardiac: Other Respiratory: No Pertinent History Gastrointestinal: Appendectomy Genitourinary: No Pertinent History Musculoskeletal: No Pertinent History Female Surgical History: Hysterectomy Other Surgical History: PT states has a filter Significant Family History: no pertinent family hx - Social History Smoking Status: Former smoker Exposure to second hand smoke: No Drug Use: none Patient Lives Alone: No - Nursing Vital Signs Nursing Vital Signs: Initial Vital Signs Temperature 97.7 F 12/01/23 08:26 Pulse Rate 70 12/01/23 08:26 Respiratory Rate 18 12/01/23 08:26 Blood Pressure 162/103 12/01/23 08:26 O2 Sat by Pulse Oximetry 95 12/01/23 08:26 Pain Scale Pain Intensity 0 - Physical Exam General Appearance: no apparent distress, alert Eye Exam: PERRL/EOMI Neck Exam: normal inspection, full range of motion Respiratory Exam: normal breath sounds, lungs clear Cardiovascular Exam: regular rate/rhythm, normal heart sounds Extremity Exam: normal range of motion, tenderness (Right distal foot. Small abrasion. No hematoma. Intact distal neurovascular.) Neurologic Exam: alert, oriented x 3, cooperative Skin Exam: normal color SpO2 Interpretation: normal SpO2: 95 O2 Delivery: Room Air Ordered Tests: Active Orders 24 hr Category Date Time Status FOOT (MINIMUM 3 VIEWS) Stat Exams 12/01/23 08:36 Ordered Medication Summary Generic Name Dose Route Start Last Admin Trade Name Freq PRN Reason Stop Dose Admin Diphtheria/Tetanus/Acell Pertussis 0.5 ml 12/01/23 08:36 Tdap --Diph,Pertuss(Acell),Tet Vac/Pf 0.5 Ml Vial IM 12/01/23 08:37 .ONCE ONE - Progress Progress Note: 12/01/23 08:59 83-year-old is evaluated in the ER for cat scratch on her right foot. Patient has some tenderness. X-rays are obtained which are negative for fracture dislocation reviewed by me, official report is pending. Tetanus is updated. Started on Z-Robert. Outpatient follow-up recommended. Discussed signs symptoms of worsening needing return to ER which she seems understanding. Stable for d ischarge. Counseled pt/family regarding: diagnosis, need for follow-up, rad results Medical Desision Making - Diagnostic Testing Diagnostic test were ordered, analyzed, and reviewed by me: Yes Radiological Interpretation: Interpreted by me, Reviewed by me - Risk of complications The pt has a mod risk of morbidity or mortality based on: Need for prescription drug management - Departure Departure Disposition: Home Clinical Impression: Cat scratch Condition: Stable Critical Care Time: No Instructions: Cellulitis (Skin Infection), Adult ED Additional Instructions: Follow-up with primary care for reevaluation in 1 to 2 days. Keep it clean and dry. Keep it elevated. Intermittent ice application. Return to ER for increasing pain swelling redness, discharge/fever chills etc. Prescriptions: Azithromycin 250 mg [Zithromax 250 MG TABLET] 250 mg PO ZPACK #6 tablet
[2023-12-01 09:10] VITALS: BP 154/83; O2SAT 96
--- NOTE | 2023-12-01 19:01 | XRAY ---
Indication: Pain following cat scratch. Comparison: None 3 nonweightbearing views right foot demonstrates osteopenia and small posterior heel spur. No other bony, articular, or soft tissue abnormalities.
== END 2023-12-01 09:30 | disposition home or self-care (01) ==
LOC: ED 08:14
DX: S90.811A Abrasion, right foot, initial encounter (principal); W55.03XA Scratched by cat, initial encounter; I10 Essential (primary) hypertension; E11.9 Type 2 diabetes mellitus without complications; Z79.84 Long term (current) use of oral hypoglycemic drugs; Z79.899 Other long term (current) drug therapy; Z23 Encounter for immunization
CPT/HCPCS: 73630; 90471; 90715; 99283

== ENCOUNTER 2024-01-20 11:50 | Emergency (ER) | payer MEDICARE ==
[2024-01-20 12:02] VITALS: TEMP 97.2
--- NOTE | 2024-01-20 12:27 | ERPHSYRPT ---
- History of Present Illness Time Seen by Provider: 01/20/24 12:10 Source: patient, family Exam Limitations: no limitations Patient Subjective Stated Complaint: PT states "I stumbled and fell yesterday and hit my head on the wall. My neck is really hurting all the way around." Triage Nursing Assessment: Pt presented alert and oriented X 3, skin wpd. Pt ambulates with a slow gait. Pt was placed in a c collar once in the room. Physician History: This is an 83-year-old female who was at home and slipped when she went around a corner while she is wearing slippers. She fell and hit her head. This morning, she woke up and she has headache and neck pain. She did not pass out. She states she did not lose consciousness. She has no chest pain. She has no shortness of breath. She has no aches and pains anywhere else. Patient was brought into the emergency department by family vehicle. There were no anticoagulation medication listed on her medication list that I reviewed. As soon as she arrived to the emergency department and gave that history, we placed a cervical collar on her. Patient has a history of diabetes, hypertension and anemia Occurred: yesterday Reason for Fall: slipped Injuries/Pain Location: head, neck Loss of Consciousness: no loss of consciousness Quality: aching Severity of Pain-Max: moderate Severity of Pain-Current: mild Modifying Factors: Improves With: movement Associated Symptoms (Fall): headache, neck pain, No confusion, No chest pain, No extremity injury, No lightheadedness, No shortness of breath Allergies/Adverse Reactions: No Known Drug Allergies Allergy (Verified 12/01/23 08:26) Home Medications: Cholecalciferol (Vitamin D3) [Vitamin D] 50,000 unit PO WEEKLY 10/02/21 [History] Ferrous Sulfate 325 mg PO DAILY 10/02/21 [History] Lisinopril 10 mg [Zestril 10 MG] 20 mg PO DAILY 10/02/21 [History] Metformin HCl 500 mg [Glucophage 500 MG] 500 mg PO BIDWM 10/02/21 [Hi story] Hx Tetanus, Diphtheria Vaccination/Date Given: No (NOT tetanus) Hx Influenza Vaccination/Date Given: Yes Hx Pneumococcal Vaccination/Date Given: No Immunizations Up to Date: No Travel Risk - International Travel Have you traveled outside of the country in past 3 weeks: No - Emerging Infectious Disease Are you exhibiting symptoms associated with any current EIDs: No - Review of Systems Constitutional: No Symptoms Eyes: No Symptoms Ears, Nose, & Throat: No Symptoms Respiratory: No Symptoms Cardiac: No Symptoms Abdominal/Gastrointestinal: No Symptoms Genitourinary Symptoms: No Symptoms Musculoskeletal: Neck Pain, Fall Skin: No Symptoms Neurological: Headache Psychological: No Symptoms Endocrine: No Symptoms Hematologic/Lymphatic: No Symptoms Immunological/Allergic: No Symptoms All Other Systems: Reviewed and Negative - Past Medical History Pertinent Past Medical History: Yes Neurological History: Stroke ENT History: No Pertinent History Cardiac History: Hypertension Respiratory History: COPD Endocrine Medical History: Diabetes Type II Musculoskeletal History: Arthritis GI Medical History: GERD History: No Pertinent History Psycho-Social History: Anxiety, Depression Female Reproductive Disorders: No Pertinent History Other Medical History: PT POOR HISTORIAN - Past Surgical History Past Surgical History: Yes Neuro Surgical History: No Pertinent History Cardiac: Other Respiratory: No Pertinent History Gastrointestinal: Appendectomy Genitourinary: No Pertinent History Musculoskeletal: No Pertinent History Female Surgical History: Hysterectomy Other Surgical History: PT states has a filter Significant Family History: no pertinent family hx - Social History Smoking Status: Former smoker Exposure to second hand smoke: No Drug Use: none Patient Lives Alone: No - Nursing Vital Signs Nursing Vital Signs: Initial Vital Signs Temperature 97.2 F 01/20/24 11:58 Pulse Rate 99 H 01/20/24 11:58 Respiratory Rate 18 01/20/24 11:58 Blood Pressure 146/75 01/20/24 11:58 O2 Sat by Pulse Oximetry 94 L 01/20/24 11:58 Pain Scale Pain Intensity 4 - Cristian Coma Score Best Eye Response (Flushing): (4) open spontaneously Best Verbal Response (Cristian): (5) oriented Best Motor Response (Cristian): (6) obeys commands Cristian Total: 15 - Physical Exam General Appearance: no apparent distress, alert, anxiety Head Injury: no evidence of injury Eye Exam: PERRL/EOMI, eyes nml inspection ENT Exam: airway nml, nml ext.inspection Neck Exam: trachea midline, normal alignment, c-collar in place Respiratory/Chest Exam: normal breath sounds, crepitus, No chest tenderness, No respiratory distress, No ecchymosis Cardiovascular Exam: normal heart sounds, regular rate/rhythm, normal peripheral pulses Gastrointestinal Exam: soft, normal bowel sounds, No tenderness Rectal Exam: not done Back Exam: normal inspection, normal range of motion, No CVA tenderness, No vertebral tenderness Extremity Exam: normal inspection, normal range of motion, capillary refill <3 sec, pelvis stable Neurologic Exam: alert, oriented x 3, cooperative, vfx artist II-XII nml as tested, normal mood/affect Skin Exam: normal color, warm, dry SpO2 Interpretation: borderline oxygenation SpO2: 94 O2 Delivery: Room Air Ordered Tests: Active Orders 24 hr Category Date Time Status CERVICAL SPINE WO CONTRAST [CT] Stat Exams 01/20/24 12:08 Completed HEAD WITHOUT CONTRAST [CT] Stat Exams 01/20/24 12:08 Completed MRI BRAIN W/O CONTRAST [MRI] Stat Exams 01/20/24 14:23 Completed Respiratory Therapy Assessment DAILY RT 01/20/24 15:24 Active Medication Summary Discontinued Medications Generic Name Dose Route Start Last Admin Trade Name Mitulq PRN Reason Stop Dose Admin Albuterol Sulfate 2.5 mg 01/20/24 15:19 01/20/24 15:20 Albuterol Sulfate 2.5 Mg/3 Ml Neb IH 01/20/24 15:20 2.5 mg STAT ONE Administration Albuterol Sulfate Confirm 01/20/24 15:18 Albuterol Sulfate 2.5 Mg/3 Ml Neb Administered 01/20/24 15:19 Dose 2.5 mg IH .STK-MED ONE - Progress Progress: pain not gone completely, re-examined Progress Note: 01/20/24 12:25 My medical decision making and the assignment of low to moderate complexity was based on review of the patient's past medical history, review the patient's medication list, review of patient drug allergy list, history present illness and physical findings on examination. This patient's workup includes placement of c-collar upon arrival to the emergency department, CT scan of the head and cervical spine without contrast. Differential diagnosis includes intracranial abnormality, skull fracture, cervical spine fracture and/or subluxation. 01/20/24 14:24 The radiologist interpreted the head CT without contrast. The impression states left periventricular hypodensity which could represent an insult of indeterminate age. They recommend an MRI of the brain. I spoke with him in radiology and he stated to order MRI of the brain without contrast. They do the diffuse weight and all patients with an MRI. The radiologist interpreted the cervical spine CT scan without contrast. The impression shows multiple degenerative changes in the cervical spine. However, there are no acute fractures or subluxations present. The radiologist does state there is a grade 1 anterolisthesis of C7 over T1 without evidence for spondylolisthesis. There are no areas of significant central canal stenosis. 01/20/24 14:27 01/20/24 15:50 As recommended by the radiologist, I ordered an MRI of the brain without contrast and they interpreted the MRI of the brain without contrast study. Findings suggestive of microvascular ischemic and senile changes with differential possibility of demyelination plaques. There are no acute intracranial abnormalities. Counseled pt/family regarding: diagnosis, need for follow-up, rad results Medical Desision Making - Diagnostic Testing Diagnostic test were ordered, analyzed, and reviewed by me: Yes Radiological Interpretation: Reviewed by me, Teleradiologist Report - Risk of complications Low Risk: Low risk of morbidity from additional dx testing or treatment - Departure Departure Disposition: Home Clinical Impression: Fall with no significant injury, Neck pain Condition: Stable Critical Care Time: No Referrals: CHUCK AHUJA [Primary Care Provider] - Follow up/PCP as directed Additional Instructions: May use Tylenol and ibuprofen for pain control if there are no contra indications. Call your primary care physician tomorrow, 01/21/2024, to make arranges for follow-up appointment for further evaluation management including referral to physical therapy for the neck pain.
--- NOTE | 2024-01-20 13:40 | XRAY ---
CLINICAL HISTORY: Fall COMPARISON: None TECHNIQUE: An axial [id number] CT scan of the brain was performed from the skull base to the high parietal region. One of the following dose-reduction techniques was utilized for this exam. Automated exposure control, adjustment of the mA and/or kV according to patient size, and use of iterative reconstruction. FINDINGS: A faint left paraventricular area of hypodensity is noted, measuring about 0.5x1.5 cm (S2 Im 47/74), which could represent an insult of indeterminate age. The overlying cortex is intact. Further evaluation is advised. There are tiny ill-defined iso-to hypodense areas noted in the left basal ganglia, suggestive of old ischemic insult. The ventricular system, cortical sulci and basal cisterns are prominent and consistent with senile changes. Velez-white matter differentiation is maintained. No midline shifts or deformity. No intracerebral or extra axial hematoma. Normal CT appearance of the posterior fossa structures namely the cerebellar hemispheres, brainstem and cerebellar peduncles. The IACs are unremarkable. The cerebello-pontine angles are clear. The pituitary gland, the pineal gland, the optic chiasm is unremarkable. The osseous structures in the skull base are unremarkable. No definite calvarium fractures. The scanned paranasal sinuses are clear. IMPRESSION: Left periventricular hypodensity, which could represent an insult of indeterminate age. Further evaluation with diffusion-weighted MR is recommended. Volume loss and chronic microvascular ischemic changes of the periventricular white matter are noted. The referring physician's office was called at at 12:31 PM BUSINESS DEVELOPMENT COORDINATOR on 01/20/2024 and the results were verbally communicated to Dr. Flores. Electronically Signed by: Matt Harris MD. (01/20/2024 13:35:38 EDT)
--- NOTE | 2024-01-20 13:52 | XRAY ---
CLINICAL HISTORY: Fall COMPARISON: None. TECHNIQUE: Thin axial CT of the cervical spine was performed with sagittal and coronal reconstructions without contrast. One of the following dose reduction techniques were utilized for this exam: Automated exposure control, adjustment of the mA and/or kV according to patient size, use of iterative reconstruction FINDINGS: There is evidence of grade 1 anterolisthesis of C7 over T1 without evidence of spondylolisthesis. Straightening of cervical spine noted likely due to muscle spasm. Reduced bone density noted. No fracture/subluxation was identified. Intervertebral disc spaces appear reduced along with endplate sclerosis at multiple levels including C3-C4 C5-C6 and C6-C7 levels. Degenerative appearing small marginal endplate osteophytes are seen from C2-C7 level. Uncovertebral and facet joint arthropathies. Osteophytes as well as degenerative changes are noted at the tip of the ordered odontoid process. Calcifications of the transverse ligament of the atlas ("crowned dens" sign). Calcification of the anterior longitudinal ligament is seen. No lytic or sclerotic bone lesion. The craniovertebral measures are unremarkable. Level by level analysis: C2-C3: no definite disc bulge noted. No central canal stenosis. C3-C4: Mild disc bulge along with osteophytes involving the facet joints causing mild bilateral narrowing of neural foramina. C4-C5: A mild disc bulge as well as osteophyte complex causing mild bilateral neuroforaminal stenosis. No significant central canal stenosis. C5-C6: Mild disc bulge is seen causing mild bilateral neuroforaminal narrowing. C6-C7: Mild disc bulge is seen however no significant central canal or neuroforaminal stenosis. IMPRESSION: There is evidence of grade 1 anterolisthesis of C7 over T1 without the evidence of spondylolisthesis. Straightening of the cervical lordosis seen likely due to muscle spasm. Osteopenia. Moderate cervical spondylotic changes with osteophytes. Multilevel moderate disc degenerative changes and disc bulge noted causing mild bilateral neural foramen narrowing, would recommend MRI for further evaluation. Electronically Signed by: Matt Harris MD. (01/20/2024 13:47:51 EDT)
[2024-01-20 14:03] VITALS: BP 146/78
[2024-01-20] MEDS ORDERED: PROVENTIL 2.5 MG/3 ML NEB IH ONE (15:18)
[2024-01-20] MEDS: PROVENTIL 2.5 MG/3 ML NEB IH ONE (15:20)
[2024-01-20 15:26] VITALS: PULSE 96; RESP 28
--- NOTE | 2024-01-20 15:44 | XRAY ---
CLINICAL HISTORY: Fall injury. COMPARISON: 01/20/2024 CT TECHNIQUE: Different pulse sequences were performed in different planes without contrast injection for the brain. Images were sent through PACs for interpretation. FINDINGS: Limited study. No T1 sequences, SWI sequences, axial T2 and saggital FLAIR. No hyperacute or acute infarctions could be depicted. Ventricular chain and extracerebral CSF spaces appear prominent consistent with global involutional senile changes. Multiple discrete and confluent T2 hyperintense foci are seen in periventricular, deep and subcortical white matter of bilateral cerebral hemisphere and little. A few hyperintense foci are also seen at the undersurface of corpus callosum. Normal MRI appearance of the midbrain, and medulla oblongata. Normal MRI appearance of the petrous temporal bones, brainstem, vestibule cochlear nerves, cerebellopontine angles with no definite masses. No shift of midline structures. No intracerebral or extra-axial hematomas or masses. Normal MRI appearance of orbital structures, both globes, optic nerves, and optic chiasm. IMPRESSION: The above-mentioned findings are suggestive of microvascular ischemic changes and senile changes with differential possibility of demyelination plaques. No acute intracranial abnormality can be seen. Electronically Signed by: Matt Harris MD. (01/20/2024 15:40:54 EDT)
[2024-01-20 15:53] VITALS: O2SAT 94
== END 2024-01-20 16:17 | disposition home or self-care (01) ==
LOC: ED 11:50
DX: Z04.3 Encounter for examination and observation following other accident (principal); M54.2 Cervicalgia; R51.9 Headache, unspecified; E11.9 Type 2 diabetes mellitus without complications; I10 Essential (primary) hypertension; Z79.84 Long term (current) use of oral hypoglycemic drugs; Z79.899 Other long term (current) drug therapy
CPT/HCPCS: 70450; 70551; 72125; 94640; 99283; J7609; A9270-GY

== ENCOUNTER 2024-06-15 15:36 | Emergency (ER) | payer MEDICARE, OTHER ==
[2024-06-15 15:52] VITALS: TEMP 97.4
[2024-06-15] MEDS ORDERED: Lasix 40 MG/4 ML ONE (16:05)
[2024-06-15] MEDS: Lasix 40 MG/4 ML IV ONE (16:07)
--- NOTE | 2024-06-15 16:18 | ERPHSYRPT ---
- History of Present Illness Source: patient, EMS Exam Limitations: no limitations Patient Subjective Stated Complaint: pt was found on her porch having an asthma attack by her neighbor and pt was gasping when EMS arrived and they gave her a treatment and crackles are heard across the room Triage Nursing Assessment: Pt brought to the ER by EMS, tachycardic, hypertensive, rates pain in her right upper leg as 06/18, family reports that the leg pain has been going on for a while but she is really complaining today, crackles heard across the room, pulses normal, skin n/w/d Timing/Duration: today Severity: moderate Modifying Factors: Improves With: movement Associated Symptoms: abdominal pain, shortness of breath, cough, No nausea, No vomiting, No heartburn, No diaphoresis Hx Tetanus, Diphtheria Vaccination/Date Given: No (unsure) Hx Influenza Vaccination/Date Given: No Hx Pneumococcal Vaccination/Date Given: No <ANNAMARIE MALLOY - Last Filed: 06/15/24 19:08> <QIAN SNYDER - Last Filed: 06/15/24 19:45> - History of Present Illness Time Seen by Provider: 06/15/24 15:42 Physician History: Patient brought to the ER by EMS for shortness of breath. She was found on her porch short of breath by the neighbor. Neighbor called the ambulance. Patient is on home oxygen. Patient complains of the right groin and right lower extremity pain. Patient denies any chest pain. Despite being slightly short of breath, patient is in good spirit and cutting jokes in the ER. Patient denies any chest pain. (ANNAMARIE MALLOY) Allergies/Adverse Reactions: No Known Drug Allergies Allergy (Verified 06/15/24 15:52) Home Medications: Cholecalciferol (Vitamin D3) [Vitamin D] 50,000 unit PO WEEKLY 10/02/21 [History] Ferrous Sulfate 325 mg PO DAILY 10/02/21 [History] Lisinopril 10 mg [Zestril 10 MG] 20 mg PO DAILY 10/02/21 [History] Metformin HCl 500 mg [Glucophage 500 MG] 500 mg PO BIDWM 10/02/21 [History] Travel Risk - International Travel Have you traveled outside of the country in past 3 weeks: No - Emerging Infectious Disease Are you exhibiting symptoms associated with any current EIDs: No <ANNAMARIE MALLOY - Last Filed: 06/15/24 19:08> - Review of Systems Constitutional: No Fever, No Chills Eyes: No Symptoms Ears, Nose, & Throat: No Symptoms Respiratory: Cough, Dyspnea, Dyspnea on Exertion (REDDY), Wheezing Cardiac: No Chest Pain, No Edema, No Syncope Abdominal/Gastrointestinal: Abdominal Pain, Other (Right lower quadrant pain), No Nausea, No Vomiting, No Diarrhea Genitourinary Symptoms: No Dysuria Musculoskeletal: Other (Right lower extremity pain), No Back Pain, No Neck Pain Skin: No Rash Neurological: No Dizziness, No Focal Weakness, No Sensory Changes Psychological: No Symptoms Endocrine: No Symptoms All Other Systems: Reviewed and Negative <ANNAMARIE MALLOY - Last Filed: 06/15/24 19:08> - Past Medical History Pertinent Past Medical History: Yes Neurological History: Stroke ENT History: No Pertinent History Cardiac History: Hypertension Respiratory History: COPD, Asthma Endocrine Medical History: Diabetes Type II Musculoskeletal History: Arthritis GI Medical History: GERD History: No Pertinent History Psycho-Social History: Depression, Anxiety Female Reproductive Disorders: No Pertinent History Other Medical History: . - Past Surgical History Past Surgical History: Yes Neuro Surgical History: No Pertinent History Cardiac: Other Respiratory: No Pertinent History Gastrointestinal: Appendectomy Genitourinary: No Pertinent History Musculoskeletal: No Pertinent History Female Surgical History: Hysterectomy Other Surgical History: . Significant Family History: no pertinent family hx - Social History Smoking Status: Never smoker Exposure to second hand smoke: No Drug Use: none Patient Lives Alone: No - Social Determinants of Health Will the patient participate in the screening: Declined to provide <ANNAMARIE MALLOY - Last Filed: 06/15/24 19:08> - Physical Exam General Appearance: no apparent distress, alert Eye Exam: PERRL/EOMI, eyes nml inspection Ears, Nose, Throat Exam: normal ENT inspection, TMs normal, pharynx normal, moist mucous membranes Neck Exam: normal inspection, non-tender, supple, full range of motion Respiratory Exam: lungs clear, diminished breath sounds, accessory muscle use, crackles/rales, rhonchi, wheezing Cardiovascular Exam: regular rate/rhythm, normal heart sounds, normal peripheral pulses Gastrointestinal/Abdomen Exam: soft, normal bowel sounds, tenderness (Minimal right lower quadrant tenderness. No rebound or guarding.), No mass, No rebound, No splenomegaly Pelvic Exam: not done Back Exam: normal inspection, normal range of motion, No CVA tenderness, No vertebral tenderness Extremity Exam: normal inspection, normal range of motion, pelvis stable Neurologic Exam: alert, oriented x 3, cooperative, normal mood/affect, nml cerebellar function, nml station & gait, sensation nml, No motor deficits Skin Exam: normal color, warm, dry, No rash Lymphatic Exam: No adenopathy SpO2 Interpretation: borderline oxygenation SpO2: 105 O2 Delivery: Nasal Cannula <ANNAMARIE MALLOY - Last Filed: 06/15/24 19:08> - Nursing Vital Signs Nursing Vital Signs: Initial Vital Signs Temperature 97.4 F 06/15/24 15:38 Pulse Rate 103 H 06/15/24 15:38 Blood Pressure 163/73 06/15/24 15:38 O2 Sat by Pulse Oximetry 95 06/15/24 15:38 Pain Scale Pain Intensity 10 - Course Nursing assessment & vital signs reviewed: Yes EKG Interpreted by Me: Other (Normal sinus rhythm with sinus tachycardia, heart rate 101, left anterior fascicular block, left ventricular hypertrophy and possible anterior Q waves. Nothing acute.) <ANNAMARIE MALLOY - Last Filed: 06/15/24 19:08> Ordered Tests: Active Orders 24 hr Category Date Time Status Chief Dispatcher STAT Care 06/15/24 15:58 Active EKG-ER Only STAT Care 06/15/24 15:57 Active IV Insertion STAT Care 06/15/24 15:57 Active Oxygen-ED Only Nasal Cannula 2 lpm Care 06/15/24 15:57 Active ABDOMEN AND PELVIS W/0 CONTRAS [CT] Stat Exams 06/15/24 17:38 Taken CHEST 1 VIEW (PORTABLE) Stat Exams 06/15/24 15:58 Completed ARTERIAL BLOOD GASES Urgent Lab 06/15/24 16:18 Completed BLOOD CULTURE Stat Lab 06/15/24 16:35 Received CBC W DIFF Stat Lab 06/15/24 16:00 Completed CMP Stat Lab 06/15/24 16:00 Completed LIPASE Stat Lab 06/15/24 16:00 Completed Lactic Acid Stat Lab 06/15/24 16:18 Completed MAGNESIUM Stat Lab 06/15/24 16:00 Completed NT PRO BNPII Stat Lab 06/15/24 16:00 Completed TROPONIN Q4H Lab 06/15/24 16:00 Completed TROPONIN Q4H Lab 06/15/24 20:00 Ordered TROPONIN Q4H Lab 06/16/24 00:00 Ordered UA W/RFX UR CULTURE Stat Lab 06/15/24 18:31 Completed Medication Summary Discontinued Medications Generic Name Dose Route Start Last Admin Trade Name Stefan PRN Reason Stop Dose Admin Furosemide 40 mg 06/15/24 15:57 06/15/24 16:07 Furosemide 40 Mg/4 Ml Vial IV 06/15/24 15:58 40 mg STAT ONE Administration Furosemide Confirm 06/15/24 16:05 Furosemide 40 Mg/4 Ml Vial Administered 06/15/24 16:06 Dose 40 mg .ROUTE .STK-MED ONE Morphine Sulfate 2 mg 06/15/24 16:05 06/15/24 16:37 Morphine Sulfate 2 Mg/Ml Inj IV 06/15/24 16:06 2 mg STAT ONE Administration Morphine Sulfate Confirm 06/15/24 16:31 Morphine Sulfate 2 Mg/Ml Inj Administered 06/15/24 16:32 Dose 2 mg .ROUTE .STK-MED ONE Ondansetron HCl 4 mg 06/15/24 16:05 06/15/24 16:36 Ondansetron Hcl 4 Mg/2 Ml Vial IV 06/15/24 16:06 4 mg STAT ONE Administration Ondansetron HCl Confirm 06/15/24 16:31 Ondansetron Hcl 4 Mg/2 Ml Vial Administered 06/15/24 16:32 Dose 4 mg .ROUTE .STK-MED ONE Lab/Rad Data: Laboratory Result Diagrams 06/15/24 16:00 06/15/24 16:00 Laboratory Results 06/15/24 06/15/24 06/15/24 Range/Units 18:31 16:50 16:18 WBC (3.98-10.04) x10^3/uL RBC (3.93-5.22) x10^6/uL Hgb (11.2-15.7) g/dL Hct (34.1-44.9) % MCV (79.4-94.8) fL MCH (25.6-32.2) pg MCHC (32.2-35.5) g/dL RDW (11.7-14.4) % Plt Count (182-369) x10^3/uL MPV (9.4-12.3) fL Gran % (34.0-71.1) % Immature Gran % (Auto) (0.001-0.429) % Nucleat RBC Rel Count (0.00-0.2) % Eos # (Auto) (0.04-0.36) x10^3/uL Immature Gran # (Auto) (0.001-0.031) x10^3u/L Absolute Lymphs (auto) (1.18-3.74) x10^3/uL Absolute Monos (auto) (0.24-0.86) x10^3/uL Absolute Nucleated RBC (0.00-0.012) x10^3u/L Lymphocytes % (19.3-51.7) % Monocytes % (4.7-12.5) % Eosinophils % (0.7-5.8) % Basophils % (0.1-1.2) % Absolute Granulocytes (1.56-6.13) x10^3/uL Basophils # (0.01-0.08) x10^3/uL Puncture Site RIGHT RADIAL pCO2 63 H* (35-45) mmHg pO2 70 L (75-100) mmHg Base Excess 8.2 H (-2.0-2.0) O2 Saturation 94.7 (94-100) g/dF ABG pH 7.36 (7.35-7.45) ABG HCO3 35.6 H* (22-28) ABG O2 Sat (Measured) 96.8 (95-100) % Izaiah Test YES A-a Gradient 1 a/A Ratio 0.99 Hemoglobin 11.9 Carboxyhemoglobin 1.1 (0.0-6.9) % THgb Methemoglobin 1.0 L (1.4-1.5) % Temperature 37.0 C POC O2 Flow Rate 21 % Sodium (135-145) mmol/L Potassium 5.4 H (3.5-5.1) mmol/L Chloride (98-107) mmol/L Carbon Dioxide (22-30) mmol/L Anion Gap (5-15) MEQ/L BUN (7-17) mg/dL Creatinine (0.52-1.04) mg/dL Estimated GFR ML/MIN Glucose (74-106) mg/dL Lactic Acid (0.4-2.0) Calcium (8.4-10.2) mg/dL Magnesium (1.6-2.3) mg/dL Total Bilirubin (0.2-1.3) mg/dL AST (14-36) U/L ALT (0-35) U/L Alkaline Phosphatase (38-126) U/L Troponin I (0.000-0.033) ng/mL NT-Pro-B Natriuret Pep (<300) pg/mL Serum Total Protein (6.3-8.2) g/dL Albumin (3.5-5.0) g/dL Lipase (23-300) U/L Urine Color Yellow (Yellow) Urine Appearance Clear (Clear) Urine pH 5.0 (4.6-8.0) Ur Specific [place] 1.010 (1.005-1.030) Urine Protein Negative (Negative) Urine Glucose (UA) Negative (Negative) mg/dL Urine Ketones Negative (Negative) Urine Blood Negative (Negative) Urine Nitrite Negative (Negative) Urine Bilirubin Negative (Negative) Urine Urobilinogen 0.2 (0.2) mg/dL Ur Leukocyte Esterase Negative (Negative) U Hyaline Cast (Auto) 3-5 A (0-2) /LPF Urine Microscopic RBC 0-2 (0-5) /HPF Urine Microscopic WBC 0-2 (0-5) /HPF Ur Epithelial Cells None Seen (None Seen) /HPF Urine Bacteria None Seen (None Seen) /HPF Urine Culture Reflexed NO (NO) Influenza Type A Ag NEGATIVE (NEGATIVE) Influenza Type B Ag NEGATIVE (NEGATIVE) RSV (PCR) NEGATIVE (NEGATIVE) SARS-CoV-2 (PCR) NEGATIVE (NEGATIVE) 06/15/24 06/15/24 06/15/24 Range/Units 16:18 16:00 16:00 WBC (3.98-10.04) x10^3/uL RBC (3.93-5.22) x10^6/uL Hgb (11.2-15.7) g/dL Hct (34.1-44.9) % MCV (79.4-94.8) fL MCH (25.6-32.2) pg MCHC (32.2-35.5) g/dL RDW (11.7-14.4) % Plt Count (182-369) x10^3/uL MPV (9.4-12.3) fL Gran % (34.0-71.1) % Immature Gran % (Auto) (0.001-0.429) % Nucleat RBC Rel Count (0.00-0.2) % Eos # (Auto) (0.04-0.36) x10^3/uL Immature Gran # (Auto) (0.001-0.031) x10^3u/L Absolute Lymphs (auto) (1.18-3.74) x10^3/uL Absolute Monos (auto) (0.24-0.86) x10^3/uL Absolute Nucleated RBC (0.00-0.012) x10^3u/L Lymphocytes % (19.3-51.7) % Monocytes % (4.7-12.5) % Eosinophils % (0.7-5.8) % Basophils % (0.1-1.2) % Absolute Granulocytes (1.56-6.13) x10^3/uL Basophils # (0.01-0.08) x10^3/uL Puncture Site pCO2 (35-45) mmHg pO2 (75-100) mmHg Base Excess (-2.0-2.0) O2 Saturation (94-100) g/dF ABG pH (7.35-7.45) ABG HCO3 (22-28) ABG O2 Sat (Measured) (95-100) % Izaiah Test A-a Gradient a/A Ratio Hemoglobin Carboxyhemoglobin (0.0-6.9) % THgb Methemoglobin (1.4-1.5) % Temperature C POC O2 Flow Rate % Sodium 139 (135-145) mmol/L Potassium 5.7 H (3.5-5.1) mmol/L Chloride 99 (98-107) mmol/L Carbon Dioxide 33 H (22-30) mmol/L Anion Gap 12.7 (5-15) MEQ/L BUN 35 H (7-17) mg/dL Creatinine 1.41 H (0.52-1.04) mg/dL Estimated GFR 36.6 ML/MIN Glucose 140 H (74-106) mg/dL Lactic Acid 0.8 (0.4-2.0) Calcium 9.6 (8.4-10.2) mg/dL Magnesium 1.9 (1.6-2.3) mg/dL Total Bilirubin 0.30 (0.2-1.3) mg/dL AST 23 (14-36) U/L ALT 12 (0-35) U/L Alkaline Phosphatase 149 H (38-126) U/L Troponin I < 0.012 (0.000-0.033) ng/mL NT-Pro-B Natriuret Pep 649 (<300) pg/mL Serum Total Protein 6.8 (6.3-8.2) g/dL Albumin 3.9 (3.5-5.0) g/dL Lipase 165 (23-300) U/L Urine Color (Yellow) Urine Appearance (Clear) Urine pH (4.6-8.0) Ur Specific [place] (1.005-1.030) Urine Protein (Negative) Urine Glucose (UA) (Negative) mg/dL Urine Ketones (Negative) Urine Blood (Negative) Urine Nitrite (Negative) Urine Bilirubin (Negative) Urine Urobilinogen (0.2) mg/dL Ur Leukocyte Esterase (Negative) U Hyaline Cast (Auto) (0-2) /LPF Urine Microscopic RBC (0-5) /HPF Urine Microscopic WBC (0-5) /HPF Ur Epithelial Cells (None Seen) /HPF Urine Bacteria (None Seen) /HPF Urine Culture Reflexed (NO) Influenza Type A Ag (NEGATIVE) Influenza Type B Ag (NEGATIVE) RSV (PCR) (NEGATIVE) SARS-CoV-2 (PCR) (NEGATIVE) 06/15/24 Range/Units 16:00 WBC 7.0 (3.98-10.04) x10^3/uL RBC 4.27 (3.93-5.22) x10^6/uL Hgb 11.8 (11.2-15.7) g/dL Hct 39.6 (34.1-44.9) % MCV 92.7 (79.4-94.8) fL MCH 27.6 (25.6-32.2) pg MCHC 29.8 L (32.2-35.5) g/dL RDW 13.4 (11.7-14.4) % Plt Count 213 (182-369) x10^3/uL MPV 11.7 (9.4-12.3) fL Gran % 77.7 H (34.0-71.1) % Immature Gran % (Auto) 0.4 (0.001-0.429) % Nucleat RBC Rel Count 0.0 (0.00-0.2) % Eos # (Auto) 0.08 (0.04-0.36) x10^3/uL Immature Gran # (Auto) 0.03 (0.001-0.031) x10^3u/L Absolute Lymphs (auto) 0.94 L (1.18-3.74) x10^3/uL Absolute Monos (auto) 0.50 (0.24-0.86) x10^3/uL Absolute Nucleated RBC 0.00 (0.00-0.012) x10^3u/L Lymphocytes % 13.5 L (19.3-51.7) % Monocytes % 7.2 (4.7-12.5) % Eosinophils % 1.1 (0.7-5.8) % Basophils % 0.1 (0.1-1.2) % Absolute Granulocytes 5.42 (1.56-6.13) x10^3/uL Basophils # 0.01 (0.01-0.08) x10^3/uL Puncture Site pCO2 (35-45) mmHg pO2 (75-100) mmHg Base Excess (-2.0-2.0) O2 Saturation (94-100) g/dF ABG pH (7.35-7.45) ABG HCO3 (22-28) ABG O2 Sat (Measured) (95-100) % Izaiah Test A-a Gradient a/A Ratio Hemoglobin Carboxyhemoglobin (0.0-6.9) % THgb Methemoglobin (1.4-1.5) % Temperature C POC O2 Flow Rate % Sodium (135-145) mmol/L Potassium (3.5-5.1) mmol/L Chloride (98-107) mmol/L Carbon Dioxide (22-30) mmol/L Anion Gap (5-15) MEQ/L BUN (7-17) mg/dL Creatinine (0.52-1.04) mg/dL Estimated GFR ML/MIN Glucose (74-106) mg/dL Lactic Acid (0.4-2.0) Calcium (8.4-10.2) mg/dL Magnesium (1.6-2.3) mg/dL Total Bilirubin (0.2-1.3) mg/dL AST (14-36) U/L ALT (0-35) U/L Alkaline Phosphatase (38-126) U/L Troponin I (0.000-0.033) ng/mL NT-Pro-B Natriuret Pep (<300) pg/mL Serum Total Protein (6.3-8.2) g/dL Albumin (3.5-5.0) g/dL Lipase (23-300) U/L Urine Color (Yellow) Urine Appearance (Clear) Urine pH (4.6-8.0) Ur Specific [place] (1.005-1.030) Urine Protein (Negative) Urine Glucose (UA) (Negative) mg/dL Urine Ketones (Negative) Urine Blood (Negative) Urine Nitrite (Negative) Urine Bilirubin (Negative) Urine Urobilinogen (0.2) mg/dL Ur Leukocyte Esterase (Negative) U Hyaline Cast (Auto) (0-2) /LPF Urine Microscopic RBC (0-5) /HPF Urine Microscopic WBC (0-5) /HPF Ur Epithelial Cells (None Seen) /HPF Urine Bacteria (None Seen) /HPF Urine Culture Reflexed (NO) Influenza Type A Ag (NEGATIVE) Influenza Type B Ag (NEGATIVE) RSV (PCR) (NEGATIVE) SARS-CoV-2 (PCR) (NEGATIVE) - Progress Progress: improved, pain not gone completely, re-examined Counseled pt/family regarding: lab results, diagnosis, need for follow-up, rad results <QIAN SNYDER - Last Filed: 06/15/24 19:45> - Progress Progress Note: 06/15/24 19:43 I interpreted the patient's laboratory data results. The patient does have slightly elevated potassium and chronic renal insufficiency. Dr. Muñoz provided the patient with 40 mg of intravenous Lasix. I will have the patient hold her lisinopril dosing tomorrow. She will then call her primary care provider tomorrow morning to discuss the elevated potassium level and the lisinopril dosing and chronic renal issues that may contribute to elevated potassium level. The chest x-ray was interpreted by the radiologist and I reviewed the impression. The impression states no acute findings. The CT scan of the abdomen pelvis without contrast was interpreted by the radiologist and I reviewed the impression. The impression states there are no comparison films. Chronic findings of emphysema, atelectasis and scarring. The right hemidiaphragm is elevated. Sigmoid diverticulosis is present. There is arteriosclerotic disease and chronic bony findings. Nothing acute. (QIAN SNYDER) Medical Desision Making - Independent Historian Additional History obtained from: Family - Diagnostic Testing Diagnostic test were ordered, analyzed, and reviewed by me: Yes Radiological Interpretation: Reviewed by me, Teleradiologist Report - Risk of complications Low Risk: Low risk of morbidity from additional dx testing or treatment <QIAN SNYDER - Last Filed: 06/15/24 19:45> - Departure Departure Disposition: Home Critical Care Time: No <ANNAMARIE MALLOY - Last Filed: 06/15/24 19:08> <QIAN SNYDER - Last Filed: 06/15/24 19:45> - Departure Clinical Impression: COPD (chronic obstructive pulmonary disease), Abdominal pain, Hyperkalemia, Chronic renal insufficiency Condition: Stable Referrals: OMAR AHUJA [Primary Care Provider] - Follow up/PCP as directed Instructions: Chronic Obstructive Pulmonary Disease Additional Instructions: Stop your lisinopril until after you speak with your primary care provider tomorrow morning. Call your primary care provider tomorrow morning, 06/16/2024, to discuss your lisinopril dosing, chronic renal disease and your elevated potassium level and to obtain instructions regarding those issues.
[2024-06-15 16:25] LABS: A-aADO2 1; ABG HEMOGLOBIN 11.9; ABG POTASSIUM 5.4 (3.5-5.1); ABG SITE RIGHT RADIAL; ALLEN TEST OK? YES; ARTERIAL BLD GAS O2 SATURATION 96.8 % (95-100); ARTERIAL BLOOD GAS BASE EXCESS 8.2 (-2.0-2.0); ARTERIAL BLOOD GAS FIO2 21 %; ARTERIAL BLOOD GAS PCO2 63 mmHg (35-45); ARTERIAL BLOOD GAS PO2 70 mmHg (75-100); ARTERIAL BLOOD GAS pH 7.36 (7.35-7.45); CARBOXYHEMOGLOBIN 1.1 % THgb (0.0-6.9); HCO3- 35.6 (22-28); HGB O2 SAT 94.7 g/dF (94-100); paO2 pAO1 0.99
[2024-06-15] MEDS ORDERED: Zofran 4 MG/2 ML VIAL ONE (16:31)
[2024-06-15] MEDS ORDERED: MORPHINE SULFATE 2 MG INJ ONE (16:31)
[2024-06-15] MEDS: Zofran 4 MG/2 ML VIAL IV ONE (16:36)
[2024-06-15] MEDS: MORPHINE SULFATE 2 MG INJ IV ONE (16:37)
--- NOTE | 2024-06-15 16:41 | XRAY ---
Indication: Short of breath. Comparison: October 02, 2021 Portable chest again demonstrates chronic right hemidiaphragm elevation with bibasilar subsegmental atelectasis/scarring less than before. Remaining heart and upper lungs unremarkable. Bony thorax intact again with osteopenia, degenerative changes, and double curvature scoliosis. No acute findings.
[2024-06-15 16:57] LABS: Absolute Neutrophil Ct (ANC) 5.42 x10^3/uL (1.56-6.13); BASOPHIL % 0.1 % (0.1-1.2); Basophil (Absolute #) 0.01 x10^3/uL (0.01-0.08); Eosinophil % 1.1 % (0.7-5.8); Eosinophil (Absolute #) 0.08 x10^3/uL (0.04-0.36); Hematocrit 39.6 % (34.1-44.9); Hemoglobin 11.8 g/dL (11.2-15.7); IMMATURE GRAN # 0.03 x10^3u/L (0.001-0.031); IMMATURE GRAN % 0.4 % (0.001-0.429); Lymphocyte (Absolute #) 0.94 x10^3/uL (1.18-3.74); Lymphocytes % 13.5 % (19.3-51.7); Mean Cell Volume 92.7 fL (79.4-94.8); Mean Corpuscular Hemoglobin 27.6 pg (25.6-32.2); Mean Corpuscular Hgb Concent. 29.8 g/dL (32.2-35.5); Mean Platelet Volume 11.7 fL (9.4-12.3); Monocytes % 7.2 % (4.7-12.5); Neutrophil % 77.7 % (34.0-71.1); Platelet Count 213 x10^3/uL (182-369); Red Blood Count 4.27 x10^6/uL (3.93-5.22); Red Cell Distribution Width 13.4 % (11.7-14.4)
[2024-06-15 17:19] LABS: ALBUMIN 3.9 g/dL (3.5-5.0); ANION GAP 12.7 MEQ/L (5-15); BILIRUBIN,TOTAL 0.3 mg/dL (0.2-1.3); Calcium 9.6 mg/dL (8.4-10.2); Creatinine 1 1.41 mg/dL (0.52-1.04); EST GLOMERULAR FILTRATION RATE 36.6 ML/MIN; MAGNESIUM 1.9 mg/dL (1.6-2.3); Potassium 5.7 mmol/L (3.5-5.1); Total Protein 6.8 g/dL (6.3-8.2)
[2024-06-15 17:33] LABS: INFLUENZA A NEGATIVE (NEGATIVE); INFLUENZA B NEGATIVE (NEGATIVE); RESPIRATORY SYNCTIAL VIRUS NEGATIVE (NEGATIVE); SARS-CoV-2 Xpert Express NEGATIVE (NEGATIVE)
[2024-06-15 18:39] LABS: Appearance Clear (Clear); Bacteria None Seen /HPF (None Seen); Bilirubin Negative (Negative); Blood Negative (Negative); Epithelial Cells None Seen /HPF (None Seen); Glucose, Urine Negative (Negative); Ketones Negative (Negative); Leukocyte Esterase Negative (Negative); Nitrite Negative (Negative); Protein,Urine Dip Negative (Negative); RBC 0-2 /HPF (0-5); Urobilinogen 0.2 mg/dL (0.2); WBC 0-2 /HPF (0-5)
[2024-06-15 20:11] VITALS: BP 161/74; PULSE 97; RESP 25; O2SAT 97
--- NOTE | 2024-06-16 08:43 | XRAY ---
Indication: Abdomen pain. Multiple contiguous axial images obtained through the abdomen and pelvis without contrast. Comparison: None Lung bases demonstrates pulmonary emphysema, bibasilar subsegmental atelectasis/scarring, and right hemidiaphragm elevation. No infiltrate or effusion. Heart not enlarged. Left total hip replacement produces beam artifact limiting exam. Noncontrasted stomach and bowel loops appear nonobstructed. Minimal sigmoid diverticulosis without diverticulitis. Appendectomy and hysterectomy reported. No free fluid/air. Remaining liver, gallbladder, pancreas, spleen, adrenal glands, kidneys, ureters, and bladder are unremarkable for noncontrast exam. Moderate scattered aortoiliac calcifications without AAA. Incidental IVC filter in situ. Osseous structures intact with osteopenia, mild/moderate multilevel thoracal lumbar degenerative spondylosis, marked levorotoscoliosis centered at L1-L2, and advanced right hip degenerative arthropathy. Impression: 1. 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 2. Chronic findings including pulmonary emphysema, atelectasis/scarring, right hemidiaphragm elevation, sigmoid diverticulosis, arteriosclerotic disease, and chronic bony findings. 3. No acute findings on this noncontrast exam.
== END 2024-06-15 20:19 | disposition home or self-care (01) ==
LOC: ED 15:36
DX: J44.9 Chronic obstructive pulmonary disease, unspecified (principal); R10.9 Unspecified abdominal pain; E87.5 Hyperkalemia; I12.9 Hypertensive chronic kidney disease with stage 1 through stage 4 chronic kidney disease, or unspecified chronic kidney disease; E11.22 Type 2 diabetes mellitus with diabetic chronic kidney disease; N18.9 Chronic kidney disease, unspecified; R06.02 Shortness of breath; R10.2 Pelvic and perineal pain; M79.604 Pain in right leg; Z79.84 Long term (current) use of oral hypoglycemic drugs; Z79.899 Other long term (current) drug therapy
CPT/HCPCS: 0241U; 36000; 36415; 36600; 71045; 74176; 80053; 81001; 82375; 82803; 83605; 83690; 83735; 83880; 84484; 85025; 87040; 93005; 93041; 96374; 96375; 99284; J1940; J2270; J2405

== ENCOUNTER 2024-06-17 19:42 | Emergency (ER) | payer MEDICARE, OTHER ==
[2024-06-17 19:59] VITALS: TEMP 97.7
[2024-06-17] MEDS ORDERED: Zofran 4 MG/2 ML VIAL ONE (20:02)
[2024-06-17] MEDS ORDERED: MORPHINE SULFATE 4 MG INJ ONE ×2 (20:02→22:49)
[2024-06-17] MEDS: Zofran 4 MG/2 ML VIAL IV ONE (20:03)
[2024-06-17] MEDS: MORPHINE SULFATE 4 MG INJ IV ONE ×2 (20:03→22:50)
[2024-06-17] MEDS: TORAdol 30 mg Injection IV ONE (22:17)
[2024-06-17] MEDS ORDERED: TORAdol 30 mg Injection ONE (22:17)
--- NOTE | 2024-06-17 23:42 | ERPHSYRPT ---
- History of Present Illness Time Seen by Provider: 06/17/24 20:20 Patient Subjective Stated Complaint: C/O intermittent right hip pain. Denies recent fall or injury. Triage Nursing Assessment: Patient brought back to ER in W/C. Transferred from chair to bed with assist of 1 staff. She is alert but has some confusion noted; family member at bedside indicates this is normal for her. Wearing 02 @ 3L per N/C; wears this continuously at home. Physician History: 83-year-old female presents to our ED for evaluation of pain to her right hip. Patient has a previous left hip total arthroplasty. Pain described as an ache that is localized however tends to radiate down into her knee area. No trauma no fever. pain is intermittent. Pain worse with weightbearing and movement. Pain is less bothersome at rest. No associated fever. No chest pain or shortness of breath. No abdominal pain. Patient has had hip pain in the past that improved with time. The pain was similar to today's presentation. Grandson at bedside. They voiced no other complaints or concerns at this time. Portions of this note were created with voice recognition technology. There may be grammatical, spelling, punctuation or sound alike errors Timing/Duration: today Severity: moderate Modifying Factors: Improves With: movement Associated Symptoms: denies symptoms Allergies/Adverse Reactions: No Known Drug Allergies Allergy (Verified 06/17/24 19:51) Home Medications: Cholecalciferol (Vitamin D3) [Vitamin D] 50,000 unit PO WEEKLY 10/02/21 [History] Ferrous Sulfate 325 mg PO DAILY 10/02/21 [History] Lisinopril 10 mg [Zestril 10 MG] 20 mg PO DAILY 10/02/21 [History] Metformin HCl 500 mg [Glucophage 500 MG] 500 mg PO BIDWM 10/02/21 [History] Hx Tetanus, Diphtheria Vaccination/Date Given: No (unsure) Hx Influenza Vaccination/Date Given: No Hx Pneumococcal Vaccination/Date Given: No Travel Risk - International Travel Have you traveled outside of the country in past 3 weeks: No - Emerging Infectious Disease Are you exhibiting symptoms associated with any current EIDs: No - Review of Systems Constitutional: No Symptoms, No Fever, No Chills Eyes: No Symptoms Ears, Nose, & Throat: No Symptoms Respiratory: No Symptoms, No Cough, No Dyspnea Cardiac: No Symptoms, No Chest Pain, No Edema, No Syncope Abdominal/Gastrointestinal: No Symptoms, No Abdominal Pain, No Nausea, No Vomiting, No Diarrhea Genitourinary Symptoms: No Symptoms, No Dysuria Musculoskeletal: No Symptoms, No Back Pain, No Neck Pain Skin: No Symptoms, No Rash Neurological: No Symptoms, No Dizziness, No Focal Weakness, No Sensory Changes Psychological: No Symptoms Endocrine: No Symptoms Hematologic/Lymphatic: No Symptoms Immunological/Allergic: No Symptoms All Other Systems: Reviewed and Negative - Past Medical History Pertinent Past Medical History: Yes Neurological History: Stroke ENT History: No Pertinent History Cardiac History: Hypertension Respiratory History: COPD, Asthma Endocrine Medical History: Diabetes Type II Musculoskeletal History: Arthritis GI Medical History: GERD History: No Pertinent History Psycho-Social History: Depression, Anxiety Female Reproductive Disorders: No Pertinent History Other Medical History: . - Past Surgical History Past Surgical History: Yes Neuro Surgical History: No Pertinent History Cardiac: Other Respiratory: No Pertinent History Gastrointestinal: Appendectomy Genitourinary: No Pertinent History Musculoskeletal: Joint Replacement, Orthopedic Surgery Female Surgical History: Hysterectomy Other Surgical History: . Significant Family History: no pertinent family hx - Social History Smoking Status: Never smoker Exposure to second hand smoke: No Drug Use: none Patient Lives Alone: No - Social Determinants of Health Will the patient participate in the screening: Declined to provide - Nursing Vital Signs Nursing Vital Signs: Initial Vital Signs Temperature 97.7 F 06/17/24 19:55 Pulse Rate 101 H 06/17/24 19:55 Respiratory Rate 20 06/17/24 19:55 Blood Pressure 131/78 06/17/24 19:55 O2 Sat by Pulse Oximetry 100 06/17/24 19:55 Pain Scale Pain Intensity 2 - Physical Exam General Appearance: no apparent distress, alert Eye Exam: PERRL/EOMI, eyes nml inspection Ears, Nose, Throat Exam: normal ENT inspection, TMs normal, pharynx normal, moist mucous membranes Neck Exam: normal inspection, non-tender, supple, full range of motion Respiratory Exam: normal breath sounds, lungs clear, airway intact, No respiratory distress Cardiovascular Exam: regular rate/rhythm, normal heart sounds, normal peripheral pulses Gastrointestinal/Abdomen Exam: soft, normal bowel sounds, other (No pulsatile abdominal masses. Bilateral lower extremity pulses are equal bilaterally.), No tenderness, No mass Back Exam: normal inspection, normal range of motion, No CVA tenderness, No vertebral tenderness Extremity Exam: normal inspection, normal range of motion, pelvis stable, other (The involved extremities neurovascular intact distally compartments are soft cap refill less than 2 seconds. PT DP pulse are palpable. The foot is warm pink and well-perfused no pain with small arcs of motion. ) Neurologic Exam: alert, oriented x 3, cooperative, normal mood/affect, sensation nml, No motor deficits Skin Exam: normal color, warm, dry, No rash Lymphatic Exam: No adenopathy SpO2: 100 O2 Delivery: Nasal Cannula - Course Nursing assessment & vital signs reviewed: Yes - CT Exams Lower Extremity CT Interpretation: Tele-radiologist Report (CT hip revealed degenerative changes.) Ordered Tests: Active Orders 24 hr Category Date Time Status IV Insertion STAT Care 06/17/24 20:01 Completed LOWER EXTREMITY WO CONTRAST [CT] Stat Exams 06/17/24 19:57 Taken Medication Summary Discontinued Medications Generic Name Dose Route Start Last Admin Trade Name Freq PRN Reason Stop Dose Admin Ketorolac Tromethamine 30 mg 06/17/24 22:09 06/17/24 22:17 Ketorolac Tromethamine 30 Mg/Ml Inj IV 06/17/24 22:10 30 mg STAT ONE Administration Ketorolac Tromethamine Confirm 06/17/24 22:17 Ketorolac Tromethamine 30 Mg/Ml Inj Administered 06/17/24 22:18 Dose 30 mg .ROUTE .STK-MED ONE Morphine Sulfate 4 mg 06/17/24 20:01 06/17/24 20:03 Morphine Sulfate 4 Mg/Ml Injection IV 06/17/24 20:02 4 mg STAT ONE Administration Morphine Sulfate Confirm 06/17/24 20:02 Morphine Sulfate 4 Mg/Ml Injection Administered 06/17/24 20:03 Dose 4 mg .ROUTE .STK-MED ONE Morphine Sulfate 4 mg 06/17/24 22:41 06/17/24 22:50 Morphine Sulfate 4 Mg/Ml Injection IV 06/17/24 22:42 4 mg STAT ONE Administration Morphine Sulfate Confirm 06/17/24 22:49 Morphine Sulfate 4 Mg/Ml Injection Administered 06/17/24 22:50 Dose 4 mg .ROUTE .STK-MED ONE Ondansetron HCl 4 mg 06/17/24 20:02 06/17/24 20:03 Ondansetron Hcl 4 Mg/2 Ml Vial IV 06/17/24 20:03 4 mg STAT ONE Administration Ondansetron HCl Confirm 06/17/24 20:02 Ondansetron Hcl 4 Mg/2 Ml Vial Administered 06/17/24 20:03 Dose 4 mg .ROUTE .STK-MED ONE - Progress Progress: improved Progress Note: 83-year-old female presents to our ED for evaluation of right hip pain. Patient has a history of a left hip arthroplasty. Physical exam reveals left hip pain with movement. No associated fevers. No indications of septic joint. No pain with small arcs of motion. The involved extremities neurovascular tact distally compartments are soft cap refill less than 2 seconds. Extremity is pink warm and well-perfused. CT scan reveals degenerative changes. Patient's pain is under control at this time. Patient referred to the orthopedic clinic for follow-up. Patient will follow-up tomorrow morning for a reevaluation. Nacho reports that he will reports a work later to bring her for an evaluation. Patient has a history of COPD. She wears oxygen at home. Patient's oxygen level is at her baseline. Patient states he is ready for discharge. She voices no other complaints or concerns at this time. Portions of this note were created with voice recognition technology. There may be grammatical, spelling, punctuation or sound alike errors Complexity problem addressed is moderate acute complicated. No critical care time. Complex data reviewed and analyzed is moderate. Test ordered test reviewed results analyzed and correlated clinically with history and physical exam. Risk of complication and or risk of morbidity/mortality patient m anagement is low. Vital stable. Time spent to discharge patient approximately 15 minutes. Plan of care established for shared decision making. No social determinants of health present impede follow-up. Portions of this note were created with voice recognition technology. There may be grammatical, spelling, punctuation or sound alike errors 06/18/24 00:08 Counseled pt/family regarding: diagnosis, need for follow-up - Departure Departure Disposition: Home Clinical Impression: Hip pain, Hip arthritis Condition: Stable Critical Care Time: No Referrals: KAMRON BARKER MD [Primary Care Provider] - Follow up/PCP as directed Instructions: Hip Pain ED Additional Instructions: Discharge/Care Plan ZANE FUENTES was seen on 06/17/24 in the Emergency Room. The patient was counseled regarding Diagnosis,Lab results, Imaging studies, need for follow up and when to return to the Emergency Room. Prescriptions given: Discharge Note I have spoken with the patient and/or caregivers. I have explained the patient's condition, diagnosis and treatment plan based on the information available to me at this time. I have answered the patient's and/or caregiver's questions and addressed any concerns. The patient and/or caregivers have as good understanding of the patient's diagnosis, condition and treatment plan as can be expected at this point. The vital signs have been stable. The patient's condition is stable and appropriate for discharge from the emergency department. The patient will pursue further outpatient evaluation with the primary care physician or other designated or consulting physician as outlined in the discharge instructions. The patient and/or caregivers are agreeable to this plan of care and follow-up instructions have been explained in detail. The patient and/or caregivers have received these instruction. The patient/and or caregivers are aware that any significant change in condition or worsening of symptoms should prompt an immediate return to this or the closest emergency department or call 911. Outpatient Orders: Ortho Referral Time Frame: 1 Day, Facility: [facility]. Hosp, Location: [facility]
[2024-06-18 00:14] VITALS: O2SAT 100
[2024-06-18 00:15] VITALS: BP 103/64; PULSE 78; RESP 19
--- NOTE | 2024-06-18 08:49 | XRAY ---
Indication: Pain. Multiple contiguous axial images obtained through the right hip. Sagittal and coronal reformatted images obtained. Comparison: CT abdomen/pelvis June 15, 2024. Osseous structures remain demineralized. Grossly stable advanced degenerative arthropathy as evidenced by joint space loss, bony remodeling, sclerosis, and subcortical cysts. Stable mild right SI joint degenerative changes. No acute fracture, dislocation, or suspicious bony lesions. Visualized noncontrasted soft tissues again demonstrates scattered arteriosclerotic calcifications. No focal solid/cystic soft tissue mass. Impression: No change compared to CT exam 2 days ago. Again chronic findings including osteopenia, degenerative changes, and arteriosclerotic disease. No new/acute findings on this noncontrast exam.
== END 2024-06-18 00:05 | disposition home or self-care (01) ==
LOC: ED 19:42
DX: M16.11 Unilateral primary osteoarthritis, right hip (principal); M25.551 Pain in right hip; I10 Essential (primary) hypertension; E11.9 Type 2 diabetes mellitus without complications; Z79.84 Long term (current) use of oral hypoglycemic drugs; Z79.899 Other long term (current) drug therapy
CPT/HCPCS: 36000; 73700; 96374; 96375; 96376; 99284; J1885; J2270; J2405

== ENCOUNTER 2024-10-24 02:25 | Emergency (ER) | payer MEDICARE ==
[2024-10-24] MEDS ORDERED: Hydromorphone 1 mg/ml Injection ONE (02:43)
[2024-10-24] MEDS ORDERED: Zofran 4 MG/2 ML VIAL ONE (02:43)
[2024-10-24] MEDS: Zofran 4 MG/2 ML VIAL IV ONE (02:44)
[2024-10-24] MEDS: Hydromorphone 1 mg/ml Injection IV ONE (02:44)
--- NOTE | 2024-10-24 02:44 | ERPHSYRPT ---
- History of Present Illness Source: patient Exam Limitations: no limitations Physician History: Patient is having hip pain. They called EMS. She is acting like she is in narcotic withdrawal. She takes [place]'s. Whenever she got there the EMS said that she showed them her pain pills and it looks like it was some it was substituted. There is some suspicion that her medication may be getting stolen and replaced with the nonnarcotic pain medicine. She is acting like she is in narcotic withdrawal. Allergies/Adverse Reactions: No Known Drug Allergies Allergy (Verified 06/17/24 19:51) Home Medications: Cholecalciferol (Vitamin D3) [Vitamin D] 50,000 unit PO WEEKLY 10/02/21 [History] Ferrous Sulfate 325 mg PO DAILY 10/02/21 [History] Lisinopril 10 mg [Zestril 10 MG] 20 mg PO DAILY 10/02/21 [History] Metformin HCl 500 mg [Glucophage 500 MG] 500 mg PO BIDWM 10/02/21 [History] Hydrocodone/Acetaminophen [Hydrocodone-Acetamin 5-325 mg] 1 tab PO Q6HPRN PRN MDD 4 10/24/24 [History] Hx Tetanus, Diphtheria Vaccination/Date Given: No (unsure) Hx Influenza Vaccination/Date Given: No Hx Pneumococcal Vaccination/Date Given: No Travel Risk - Emerging Infectious Disease Are you exhibiting symptoms associated with any current EIDs: No - Review of Systems Constitutional: No Symptoms Eyes: No Symptoms Musculoskeletal: Arthralgias Skin: No Symptoms Psychological: No Symptoms - Past Medical History Pertinent Past Medical History: Yes Neurological History: Stroke ENT History: No Pertinent History Cardiac History: Hypertension Respiratory History: COPD, Asthma Endocrine Medical History: Diabetes Type II Musculoskeletal History: Arthritis GI Medical History: GERD History: No Pertinent History Psycho-Social History: Depression, Anxiety Female Reproductive Disorders: No Pertinent History Other Medical History: . - Past Surgical History Past Surgical History: Yes Neuro Surgical History: No Pertinent History Cardiac: Other Respiratory: No Pertinent History Gastrointestinal: Appendectomy Genitourinary: No Pertinent History Musculoskeletal: Joint Replacement, Orthopedic Surgery Female Surgical History: Hysterectomy Other Surgical History: . Significant Family History: no pertinent family hx - Social History Smoking Status: Never smoker Exposure to second hand smoke: No Drug Use: none Patient Lives Alone: No - Social Determinants of Health Will the patient participate in the screening: Declined to provide - Nursing Vital Signs Nursing Vital Signs: Initial Vital Signs Blood Pressure 180/94 10/24/24 02:32 O2 Sat by Pulse Oximetry 99 10/24/24 02:32 Pain Scale Pain Intensity 4 - Physical Exam General Appearance: no apparent distress Eye Exam: PERRL/EOMI Neurologic Exam: alert Skin Exam: normal color, warm Comments: There is no obvious deformities in the hip. And there is been no trauma.There is some pain with range of motion.01/31 02:42 - Course Nursing assessment & vital signs reviewed: Yes Ordered Tests: Active Orders 24 hr Category Date Time Status Cath for Specimen-Straight STAT Care 10/24/24 02:47 Active PELVIS WITHOUT CONTRAST [CT] Stat Exams 10/24/24 03:13 Completed CBC W DIFF Stat Lab 10/24/24 03:54 Completed CMP Stat Lab 10/24/24 03:54 Completed CULTURE,URINE Stat Lab 10/24/24 03:49 Received UA W/RFX UR CULTURE Stat Lab 10/24/24 03:13 Completed Urine Triage Profile Stat Lab 10/24/24 02:50 Completed Medication Summary Discontinued Medications Generic Name Dose Route Start Last Admin Trade Name Freq PRN Reason Stop Dose Admin Hydromorphone HCl 1 mg 10/24/24 02:41 10/24/24 02:44 Hydromorphone 1 Mg/1ml Inj IV 10/24/24 02:42 1 mg STAT ONE Administration Hydromorphone HCl Confirm 10/24/24 02:43 Hydromorphone 1 Mg/1ml Inj Administered 10/24/24 02:44 Dose 1 mg .ROUTE .STK-MED ONE Ondansetron HCl 4 mg 10/24/24 02:41 10/24/24 02:44 Ondansetron Hcl 4 Mg/2 Ml Vial IV 10/24/24 02:42 4 mg STAT ONE Administration Ondansetron HCl Confirm 10/24/24 02:43 Ondansetron Hcl 4 Mg/2 Ml Vial Administered 10/24/24 02:44 Dose 4 mg .ROUTE .STK-MED ONE Lab/Rad Data: Laboratory Result Diagrams 10/24/24 03:54 10/24/24 03:54 Laboratory Results 10/24/24 10/24/24 10/24/24 Range/Units 03:54 03:54 03:13 WBC 10.7 H (3.98-10.04) x10^3/uL RBC 4.80 (3.93-5.22) x10^6/uL Hgb 13.1 (11.2-15.7) g/dL Hct 42.7 (34.1-44.9) % MCV 89.0 (79.4-94.8) fL MCH 27.3 (25.6-32.2) pg MCHC 30.7 L (32.2-35.5) g/dL RDW 13.5 (11.7-14.4) % Plt Count 167 L (182-369) x10^3/uL MPV 11.1 (9.4-12.3) fL Gran % 85.0 H (34.0-71.1) % Immature Gran % (Auto) 0.7 H (0.001-0.429) % Nucleat RBC Rel Count 0.0 (0.00-0.2) % Eos # (Auto) 0.02 L (0.04-0.36) x10^3/uL Immature Gran # (Auto) 0.07 H (0.001-0.031) x10^3u/L Absolute Lymphs (auto) 0.80 L (1.18-3.74) x10^3/uL Absolute Monos (auto) 0.67 (0.24-0.86) x10^3/uL Absolute Nucleated RBC 0.00 (0.00-0.012) x10^3u/L Lymphocytes % 7.5 L (19.3-51.7) % Monocytes % 6.2 (4.7-12.5) % Eosinophils % 0.2 L (0.7-5.8) % Basophils % 0.4 (0.1-1.2) % Absolute Granulocytes 9.13 H (1.56-6.13) x10^3/uL Basophils # 0.04 (0.01-0.08) x10^3/uL Sodium 134 L (135-145) mmol/L Potassium 5.2 H (3.5-5.1) mmol/L Chloride 97 L (98-107) mmol/L Carbon Dioxide 31 H (22-30) mmol/L Anion Gap 11.0 (5-15) MEQ/L BUN 37 H (7-17) mg/dL Creatinine 1.96 H (0.52-1.04) mg/dL Estimated GFR 24.6 ML/MIN Glucose 112 H (74-106) mg/dL Calcium 9.1 (8.4-10.2) mg/dL Total Bilirubin 0.80 (0.2-1.3) mg/dL AST 35 (14-36) U/L ALT 18 (0-35) U/L Alkaline Phosphatase 143 H (38-126) U/L Serum Total Protein 6.6 (6.3-8.2) g/dL Albumin 3.7 (3.5-5.0) g/dL Urine Color Yellow (Yellow) Urine Appearance Clear (Clear) Urine pH 5.5 (4.6-8.0) Ur Specific [place] 1.015 (1.005-1.030) Urine Protein Trace A (Negative) Urine Glucose (UA) Negative (Negative) mg/dL Urine Ketones Negative (Negative) Urine Blood Negative (Negative) Urine Nitrite Negative (Negative) Urine Bilirubin Negative (Negative) Urine Urobilinogen 0.2 (0.2) mg/dL Ur Leukocyte Esterase Moderate A (Negative) U Hyaline Cast (Auto) 3-5 A (0-2) /LPF Urine Microscopic RBC 0-2 (0-5) /HPF Urine Microscopic WBC 11-20 A (0-5) /HPF Ur Epithelial Cells Rare (None Seen) /HPF Urine Bacteria Few A (None Seen) /HPF Urine Culture Reflexed ORDERED SEPARATELY (NO) Urine Opiates Level (NEGATIVE) Ur Methadone (NEGATIVE) Urine Barbiturates (NEGATIVE) Ur Phencyclidine (PCP) (NEGATIVE) Urine Amphetamine (NEGATIVE) U Benzodiazepine Level (NEGATIVE) Urine Cocaine (NEGATIVE) Urine Marijuana (THC) (NEGATIVE) 10/24/24 Range/Units 02:50 WBC (3.98-10.04) x10^3/uL RBC (3.93-5.22) x10^6/uL Hgb (11.2-15.7) g/dL Hct (34.1-44.9) % MCV (79.4-94.8) fL MCH (25.6-32.2) pg MCHC (32.2-35.5) g/dL RDW (11.7-14.4) % Plt Count (182-369) x10^3/uL MPV (9.4-12.3) fL Gran % (34.0-71.1) % Immature Gran % (Auto) (0.001-0.429) % Nucleat RBC Rel Count (0.00-0.2) % Eos # (Auto) (0.04-0.36) x10^3/uL Immature Gran # (Auto) (0.001-0.031) x10^3u/L Absolute Lymphs (auto) (1.18-3.74) x10^3/uL Absolute Monos (auto) (0.24-0.86) x10^3/uL Absolute Nucleated RBC (0.00-0.012) x10^3u/L Lymphocytes % (19.3-51.7) % Monocytes % (4.7-12.5) % Eosinophils % (0.7-5.8) % Basophils % (0.1-1.2) % Absolute Granulocytes (1.56-6.13) x10^3/uL Basophils # (0.01-0.08) x10^3/uL Sodium (135-145) mmol/L Potassium (3.5-5.1) mmol/L Chloride (98-107) mmol/L Carbon Dioxide (22-30) mmol/L Anion Gap (5-15) MEQ/L BUN (7-17) mg/dL Creatinine (0.52-1.04) mg/dL Estimated GFR ML/MIN Glucose (74-106) mg/dL Calcium (8.4-10.2) mg/dL Total Bilirubin (0.2-1.3) mg/dL AST (14-36) U/L ALT (0-35) U/L Alkaline Phosphatase (38-126) U/L Serum Total Protein (6.3-8.2) g/dL Albumin (3.5-5.0) g/dL Urine Color (Yellow) Urine Appearance (Clear) Urine pH (4.6-8.0) Ur Specific [place] (1.005-1.030) Urine Protein (Negative) Urine Glucose (UA) (Negative) mg/dL Urine Ketones (Negative) Urine Blood (Negative) Urine Nitrite (Negative) Urine Bilirubin (Negative) Urine Urobilinogen (0.2) mg/dL Ur Leukocyte Esterase (Negative) U Hyaline Cast (Auto) (0-2) /LPF Urine Microscopic RBC (0-5) /HPF Urine Microscopic WBC (0-5) /HPF Ur Epithelial Cells (None Seen) /HPF Urine Bacteria (None Seen) /HPF Urine Culture Reflexed (NO) Urine Opiates Level NEGATIVE (NEGATIVE) Ur Methadone NEGATIVE (NEGATIVE) Urine Barbiturates NEGATIVE (NEGATIVE) Ur Phencyclidine (PCP) NEGATIVE (NEGATIVE) Urine Amphetamine NEGATIVE (NEGATIVE) U Benzodiazepine Level NEGATIVE (NEGATIVE) Urine Cocaine NEGATIVE (NEGATIVE) Urine Marijuana (THC) NEGATIVE (NEGATIVE) - Progress Progress: improved Progress Note: Patient was stable throughout stay. I gave her some Dilaudid and Zofran. She responded well and the withdrawal symptoms went awayPartially.She was still having quite a bit of hip pain. This that she was able to walk around earlier today and after she sat down for a while the pain came on. I am going to get a CT of her hip She needs to continue on her [place] at home.CT of the hip showed no acute findings. After looking at her meds report it seems that she is not on [place] despite telling us that. She only takes Tylenol so she may not have been in withdrawal.Her pain was reduced significantly. 10/24/24 02:43 10/24/24 03:12 10/24/24 04:41 10/24/24 04:43 Medical Desision Making - Social Determinants of Health Pt's dx & treatment plan are significantly limited by SDOH: Unemployed, financi al hardships Limited access to: transportation - Departure Departure Disposition: Home Clinical Impression: Hip pain, right Condition: Stable Critical Care Time: No Referrals: KAMRON BARKER MD [Primary Care Provider] - Follow up/PCP as directed Instructions: Chronic Pain (DC)
[2024-10-24 02:55] VITALS: PULSE 119; RESP 24; TEMP 97.8
[2024-10-24 03:09] LABS: Amphetamine,Urine NEGATIVE (NEGATIVE); Barbiturate,Urine NEGATIVE (NEGATIVE); Benzodiazepine,Urine NEGATIVE (NEGATIVE); Cocaine,Urine NEGATIVE (NEGATIVE); Methadone,Urine NEGATIVE (NEGATIVE); Opiate,Urine NEGATIVE (NEGATIVE); PCP,Urine NEGATIVE (NEGATIVE); THC,Urine NEGATIVE (NEGATIVE)
[2024-10-24 03:58] LABS: Appearance Clear (Clear); Bacteria Few /HPF (None Seen); Bilirubin Negative (Negative); Blood Negative (Negative); Epithelial Cells Rare /HPF (None Seen); Glucose, Urine Negative (Negative); Ketones Negative (Negative); Leukocyte Esterase Moderate (Negative); Nitrite Negative (Negative); Ph 5.5 (4.6-8.0); Protein,Urine Dip Trace (Negative); RBC 0-2 /HPF (0-5); Specific Gravity 1.015 (1.005-1.030); Urobilinogen 0.2 mg/dL (0.2)
[2024-10-24 04:02] LABS: ALBUMIN 3.7 g/dL (3.5-5.0); BILIRUBIN,TOTAL 0.8 mg/dL (0.2-1.3); Calcium 9.1 mg/dL (8.4-10.2); Creatinine 1 1.96 mg/dL (0.52-1.04); EST GLOMERULAR FILTRATION RATE 24.6 ML/MIN; Potassium 5.2 mmol/L (3.5-5.1); Total Protein 6.6 g/dL (6.3-8.2)
[2024-10-24 04:10] LABS: Absolute Neutrophil Ct (ANC) 9.13 x10^3/uL (1.56-6.13); BASOPHIL % 0.4 % (0.1-1.2); Basophil (Absolute #) 0.04 x10^3/uL (0.01-0.08); Eosinophil % 0.2 % (0.7-5.8); Eosinophil (Absolute #) 0.02 x10^3/uL (0.04-0.36); Hematocrit 42.7 % (34.1-44.9); Hemoglobin 13.1 g/dL (11.2-15.7); IMMATURE GRAN # 0.07 x10^3u/L (0.001-0.031); IMMATURE GRAN % 0.7 % (0.001-0.429); Lymphocytes % 7.5 % (19.3-51.7); Mean Corpuscular Hemoglobin 27.3 pg (25.6-32.2); Mean Corpuscular Hgb Concent. 30.7 g/dL (32.2-35.5); Mean Platelet Volume 11.1 fL (9.4-12.3); Monocyte (Absolute #) 0.67 x10^3/uL (0.24-0.86); Monocytes % 6.2 % (4.7-12.5); Platelet Count 167 x10^3/uL (182-369); Red Cell Distribution Width 13.5 % (11.7-14.4); White Blood Count 10.7 x10^3/uL (3.98-10.04)
--- NOTE | 2024-10-24 04:18 | XRAY ---
CLINICAL HISTORY: r hip pain COMPARISON: None. TECHNIQUE: Noncontrast axial CT scan of the pelvis was performed with sagital and coronal reformats. One of the following dose reduction techniques were utilized for this exam: Automated exposure control, adjustment of the mA and/or kV according to patient size, use of iterative reconstruction. CTDI: 11.20mGy, DLP: 422mGy*cm. FINDINGS: Left hip total replacement with no evidence of prosthesis loosening or break. Marked degenerative changes involving the right hip joint with severe narrowing of joint space, periarticular subchondral sclerosis and cysts. Decreased size of the right femoral head. Decreased bone density. No acute fracture seen. 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 Partial filling of the bladder. No stones or masses seen. Hysterectomy. No pelvic mass or collection seen. Normal visualized distended loops. Aortic atherosclerotic calcification. IMPRESSION: 1. Marked degenerative changes involving the right hip joint with severe narrowing of joint space, periarticular subchondral sclerosis and cysts. Decreased size of the right femoral head, MRI is advised to rule out avascular necrosis. 2. Left hip total replacement with no evidence of prosthesis loosening or break. 3. Decreased bone density. 4. 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 Electronically Signed by: Matt Harris MD. (10/24/2024 04:14:23 EST)
[2024-10-24] MEDS ORDERED: SUBLIMAZE 100 MCG/2 ML ONE (07:48)
[2024-10-24] MEDS: SUBLIMAZE 100 MCG/2 ML IV ONE (07:51)
[2024-10-24 09:03] VITALS: BP 104/73; O2SAT 90
== END 2024-10-24 09:40 | disposition home or self-care (01) ==
LOC: ED 02:25
DX: M25.551 Pain in right hip (principal); I10 Essential (primary) hypertension; E11.9 Type 2 diabetes mellitus without complications; Z79.891 Long term (current) use of opiate analgesic; Z79.899 Other long term (current) drug therapy; Z59.82 Transportation insecurity; Z59.9 Problem related to housing and economic circumstances, unspecified
CPT/HCPCS: 36415; 72192; 80053; 80307; 81001; 85025; 87077; 87086; 87186; 96374; 96375; 99284; P9612; J1171; J2405; J3010

== ENCOUNTER 2024-10-28 05:37 | Emergency (ER) | payer MEDICARE ==
[2024-10-28 05:49] VITALS: TEMP 96
--- NOTE | 2024-10-28 06:16 | ERPHSYRPT ---
- History of Present Illness Time Seen by Provider: 10/28/24 06:15 Source: patient Exam Limitations: no limitations Physician History: Patient is an 83-year-old female history of COPD asthma diabetes presents to our ED for evaluation of right shoulder pain. Pain appears to be intermittent. Patient intermittently yells out that her right shoulder is hurting. Pain appears to be intermittent and not associated with movement or palpation. No reported trauma no fever. No nausea vomiting or diaphoresis. Symptoms are moderate to severe in intensity. No specific worsening or improving factors. Patient voices no other complaints or concerns at this time. Portions of this note were created with voice recognition technology. There may be grammatical, spelling, punctuation or sound alike errors Timing/Duration: today Severity: moderate Modifying Factors: Improves With: nothing Associated Symptoms: denies symptoms Allergies/Adverse Reactions: No Known Drug Allergies Allergy (Verified 06/17/24 19:51) Home Medications: Cholecalciferol (Vitamin D3) [Vitamin D] 50,000 unit PO WEEKLY 10/02/21 [H istory] Ferrous Sulfate 325 mg PO DAILY 10/02/21 [History] Lisinopril 10 mg [Zestril 10 MG] 20 mg PO DAILY 10/02/21 [History] Metformin HCl 500 mg [Glucophage 500 MG] 500 mg PO BIDWM 10/02/21 [History] Hydrocodone/Acetaminophen [Hydrocodone-Acetamin 5-325 mg] 1 tab PO Q6HPRN PRN MDD 4 10/24/24 [History] Hx Tetanus, Diphtheria Vaccination/Date Given: No (unsure) Hx Influenza Vaccination/Date Given: No Hx Pneumococcal Vaccination/Date Given: No Travel Risk - Emerging Infectious Disease Are you exhibiting symptoms associated with any current EIDs: No - Review of Systems Constitutional: No Symptoms, No Chills Eyes: No Symptoms Ears, Nose, & Throat: No Symptoms Respiratory: No Symptoms, No Cough, No Dyspnea Cardiac: No Symptoms, No Chest Pain, No Edema, No Syncope Abdominal/Gastrointestinal: No Symptoms, No Abdominal Pain, No Nausea, No Vomiting, No Diarrhea Genitourinary Symptoms: No Symptoms, No Dysuria Musculoskeletal: No Symptoms, No Back Pain, No Neck Pain Skin: No Symptoms, No Rash Neurological: No Symptoms, No Dizziness, No Focal Weakness, No Sensory Changes Psychological: No Symptoms Endocrine: No Symptoms Hematologic/Lymphatic: No Symptoms Immunological/Allergic: No Symptoms All Other Systems: Reviewed and Negative - Past Medical History Pertinent Past Medical History: Yes Neurological History: Stroke ENT History: No Pertinent History Cardiac History: Hypertension Respiratory History: COPD, Asthma Endocrine Medical History: Diabetes Type II Musculoskeletal History: Arthritis GI Medical History: GERD History: No Pertinent History Psycho-Social History: Depression, Anxiety Female Reproductive Disorders: No Pertinent History Other Medical History: . - Past Surgical History Past Surgical History: Yes Neuro Surgical History: No Pertinent History Cardiac: Other Respiratory: No Pertinent History Gastrointestinal: Appendectomy Genitourinary: No Pertinent History Musculoskeletal: Joint Replacement, Orthopedic Surgery Female Surgical History: Hysterectomy Other Surgical History: . Significant Family History: no pertinent family hx - Social History Smoking Status: Never smoker Exposure to second hand smoke: No Drug Use: none Patient Lives Alone: No - Social Determinants of Health Will the patient participate in the screening: Declined to provide - Nursing Vital Signs Nursing Vital Signs: Initial Vital Signs Temperature 96.0 F 10/28/24 05:38 Pulse Rate 117 H 10/28/24 05:38 Respiratory Rate 26 H 10/28/24 05:38 Blood Pressure 95/62 10/28/24 05:38 O2 Sat by Pulse Oximetry 95 10/28/24 05:38 Pain Scale Pain Intensity 10 - Physical Exam General Appearance: no apparent distress, alert Eye Exam: PERRL/EOMI, eyes nml inspection Ears, Nose, Throat Exam: normal ENT inspection, pharynx normal, moist mucous membranes Neck Exam: normal inspection, full range of motion Respiratory Exam: normal breath sounds, lungs clear, airway intact, No respiratory distress Cardiovascular Exam: regular rate/rhythm, normal heart sounds, normal peripheral pulses Gastrointestinal/Abdomen Exam: soft, normal bowel sounds, No tenderness, No mass Back Exam: normal inspection, normal range of motion, No CVA tenderness, No vertebral tenderness Extremity Exam: normal inspection, normal range of motion, pelvis stable Neurologic Exam: alert, oriented x 3, cooperative, normal mood/affect, nml station & gait, sensation nml, No motor deficits Skin Exam: normal color, warm, dry, No rash Lymphatic Exam: No adenopathy SpO2 Interpretation: normal SpO2: 95 O2 Delivery: Room Air - Course Nursing assessment & vital signs reviewed: Yes Ordered Tests: Active Orders 24 hr Category Date Time Status Business Support STAT Care 10/28/24 06:13 Active EKG-ER Only STAT Care 10/28/24 06:11 Active IV Insertion STAT Care 10/28/24 06:11 Active Pulse Oximetry (ED) STAT Care 10/28/24 06:11 Active CHEST 1 VIEW (PORTABLE) Stat Exams 10/28/24 06:13 Taken BLOOD CULTURE Stat Lab 10/28/24 06:50 Received CBC W DIFF Stat Lab 10/28/24 06:35 Received CMP Stat Lab 10/28/24 06:35 Received Lactic Acid Stat Lab 10/28/24 06:38 Completed NT PRO BNPII Stat Lab 10/28/24 06:35 Received TROPONIN Q4H Lab 10/28/24 06:35 Received TROPONIN Q4H Lab 10/28/24 10:15 Ordered TROPONIN Q4H Lab 10/28/24 14:15 Ordered UA W/RFX UR CULTURE Stat Lab 10/28/24 06:13 Ordered Medication Summary Discontinued Medications Generic Name Dose Route Start Last Admin Trade Name Stefan PRN Reason Stop Dose Admin Albuterol Sulfate 2.5 mg 10/28/24 06:24 10/28/24 06:40 Albuterol Sulfate 2.5 Mg/3 Ml Neb IH 10/28/24 06:25 2.5 mg STAT ONE Administration Albuterol Sulfate Confirm 10/28/24 06:37 Albuterol Sulfate 2.5 Mg/3 Ml Neb Administered 10/28/24 06:38 Dose 2.5 mg IH .STK-MED ONE Methylprednisolone Sodium 0 mg 10/28/24 06:24 10/28/24 06:50 Succinate 125 mg/ Sterile IV 10/28/24 06:25 125 mg Water 2 ml STAT ONE Administration Methylprednisolone Sodium Succinate Confirm 10/28/24 06:49 Methylprednis Sod Succ 125 Mg/2 Ml Vial Administered 10/28/24 06:50 Dose 125 mg .ROUTE .STK-MED ONE Morphine Sulfate 2 mg 10/28/24 06:29 10/28/24 06:50 Morphine Sulfate 2 Mg/Ml Inj IV 10/28/24 06:30 2 mg STAT ONE Administration Morphine Sulfate Confirm 10/28/24 06:48 Morphine Sulfate 2 Mg/Ml Inj Administered 10/28/24 06:49 Dose 2 mg .ROUTE .STK-MED ONE Ondansetron HCl 4 mg 10/28/24 06:29 10/28/24 06:51 Ondansetron Hcl 4 Mg/2 Ml Vial IV 10/28/24 06:30 4 mg STAT ONE Administration Ondansetron HCl Confirm 10/28/24 06:48 Ondansetron Hcl 4 Mg/2 Ml Vial Administered 10/28/24 06:49 Dose 4 mg .ROUTE .STK-MED ONE Sterile Water Confirm 10/28/24 06:48 Water For Injection,Sterile 10 Ml Vial Administered 10/28/24 06:49 Dose 10 ml IJ .STK-MED ONE Lab/Rad Data: Laboratory Results 10/28/24 Range/Units 06:38 Lactic Acid 2.0 (0.4-2.0) - Progress Progress: improved Progress Note: 83-year-old female presents to our emergency department for evaluation of right shoulder pain. Physical exam reveals some wheezing no acute respiratory distress. Imaging study labs ordered. Results are just now coming in. Is currently the change of shift. Patient endorsed incoming physician. Patient appears to be resting comfortably. She is not complaining of active pain at this time. We will continue to monitor patient's progress and vitals and analyzed incoming data to make final disposition. Portions of this note were created with voice recognition technology. There may be grammatical, spelling, punctuation or sound alike errors Complexity of problem addressed is moderate acute complicated. No critical care time. Complex of data reviewed and analyzed is extensive. Test ordered test reviewed results analyzed and correlated clinically with history and physical exam. Risk of complication and or risk of morbidity/mortality of patient management is high. Vital stable. Time spent to disposition patient approximately 20 minutes. Plan of care established for shared decision making. No social determinants of health present to impede follow-up. Portions of this note were created with voice recognition technology. There may be grammatical, spelling, punctuation or sound alike errors 10/28/24 07:13 Counseled pt/family regarding: diagnosis, need for follow-up, rad results - Departure Departure Disposition: Observation Clinical Impression: Wheezing, Shoulder pain Condition: Stable Critical Care Time: No Referrals: KAMRON BARKER MD [Primary Care Provider] - Follow up/PCP as directed
[2024-10-28] MEDS ORDERED: PROVENTIL 2.5 MG/3 ML NEB IH ONE (06:37)
[2024-10-28] MEDS: PROVENTIL 2.5 MG/3 ML NEB IH ONE (06:40)
[2024-10-28] MEDS ORDERED: Zofran 4 MG/2 ML VIAL ONE (06:48)
[2024-10-28] MEDS ORDERED: MORPHINE SULFATE 2 MG INJ ONE (06:48)
[2024-10-28] MEDS ORDERED: Sterile H2O 10 ml IJ ONE (06:48)
[2024-10-28] MEDS ORDERED: solu-MEDROL ONE (06:49)
[2024-10-28] MEDS: MORPHINE SULFATE 2 MG INJ IV ONE (06:50)
[2024-10-28] MEDS: solu-MEDROL 125 MG, Sterile H2O 10 ml 2 ML IV ONE (06:50)
[2024-10-28] MEDS: Zofran 4 MG/2 ML VIAL IV ONE (06:51)
[2024-10-28 06:57] LABS: Absolute Neutrophil Ct (ANC) 8.29 x10^3/uL (1.56-6.13); BASOPHIL % 0.4 % (0.1-1.2); Basophil (Absolute #) 0.04 x10^3/uL (0.01-0.08); Eosinophil % 1.6 % (0.7-5.8); Eosinophil (Absolute #) 0.14 x10^3/uL (0.04-0.36); Hemoglobin 12.8 g/dL (11.2-15.7); IMMATURE GRAN % 1.1 % (0.001-0.429); Lymphocyte (Absolute #) 0.17 x10^3/uL (1.18-3.74); Lymphocytes % 1.9 % (19.3-51.7); Mean Cell Volume 87.5 fL (79.4-94.8); Mean Corpuscular Hemoglobin 26.7 pg (25.6-32.2); Mean Corpuscular Hgb Concent. 30.5 g/dL (32.2-35.5); Mean Platelet Volume 12.9 fL (9.4-12.3); Monocyte (Absolute #) 0.22 x10^3/uL (0.24-0.86); Monocytes % 2.5 % (4.7-12.5); Neutrophil % 92.5 % (34.0-71.1); Platelet Count 66 x10^3/uL (182-369); Red Cell Distribution Width 14.1 % (11.7-14.4)
[2024-10-28 07:19] LABS: ALBUMIN 2.7 g/dL (3.5-5.0); ANION GAP 16.4 MEQ/L (5-15); BILIRUBIN,TOTAL 0.9 mg/dL (0.2-1.3); Calcium 8.7 mg/dL (8.4-10.2); Creatinine 1 2.95 mg/dL (0.52-1.04); EST GLOMERULAR FILTRATION RATE 15.1 ML/MIN; Potassium 5.2 mmol/L (3.5-5.1); Total Protein 5.3 g/dL (6.3-8.2)
[2024-10-28] MEDS ORDERED: Sodium Chloride 0.9% 1000 ML 1,000 ML ONE ×2 (07:19→10:06)
[2024-10-28 07:20] LABS: Slide Review 1 YES
[2024-10-28] MEDS: Sodium Chloride 0.9% 1000 ML 1,000 ML IV STA (07:25)
[2024-10-28 07:36] LABS: INFLUENZA A NEGATIVE (NEGATIVE); INFLUENZA B NEGATIVE (NEGATIVE); RESPIRATORY SYNCTIAL VIRUS NEGATIVE (NEGATIVE); SARS-CoV-2 Xpert Express NEGATIVE (NEGATIVE)
[2024-10-28 08:31] LABS: Appearance Clear (Clear); Bacteria Few /HPF (None Seen); Bilirubin Small (Negative); Blood Negative (Negative); Epithelial Cells Rare /HPF (None Seen); Glucose, Urine Negative (Negative); Ketones Trace (Negative); Leukocyte Esterase Small (Negative); Nitrite Negative (Negative); Protein,Urine Dip 30 (Negative); RBC 0-2 /HPF (0-5); WBC 0-2 /HPF (0-5)
[2024-10-28] MEDS ORDERED: ROCEPHIN 1 GM / 100 ML NaCl 1 GM/100 ML IVPB IV ONE (08:46)
[2024-10-28] MEDS: ROCEPHIN 1 GM / 100 ML NaCl 1 GM/100 ML IVPB IV ONE (08:51)
--- NOTE | 2024-10-28 08:56 | XRAY ---
Indication: Pain. Comparison: June 15, 2024 Portable chest unchanged again demonstrating chronic right hemidiaphragm elevation and minimal bibasilar subsegmental atelectasis/scarring. Remaining heart and upper lungs unremarkable. Bony thoracic intact again with osteopenia, degenerative changes, and double curvature scoliosis. No new/acute findings.
[2024-10-28] MEDS: Sodium Chloride 0.9% 1000 ML 1,000 ML IV SCH ×2 (10:07→11:50)
[2024-10-28 11:26] VITALS: BP 105/51; PULSE 92; RESP 23; O2SAT 88
== END 2024-10-28 12:00 | disposition short-term general hospital (02) ==
LOC: ED 05:37
DX: R06.2 Wheezing (principal); M25.511 Pain in right shoulder; I13.0 Hypertensive heart and chronic kidney disease with heart failure and stage 1 through stage 4 chronic kidney disease, or unspecified chronic kidney disease; I50.9 Heart failure, unspecified; E11.22 Type 2 diabetes mellitus with diabetic chronic kidney disease; N18.9 Chronic kidney disease, unspecified; N17.9 Acute kidney failure, unspecified; D69.6 Thrombocytopenia, unspecified; R53.1 Weakness; R52 Pain, unspecified; R77.8 Other specified abnormalities of plasma proteins; I95.9 Hypotension, unspecified; N39.0 Urinary tract infection, site not specified; Z79.84 Long term (current) use of oral hypoglycemic drugs; Z79.891 Long term (current) use of opiate analgesic; Z79.899 Other long term (current) drug therapy
CPT/HCPCS: 0241U; 36415; 71045; 80053; 81001; 83605; 83880; 84484; 85025; 87040; 87077; 87086; 87186; 93005; 93041; 94640; 94760; 96361; 96365; 96375; 99285; 96374; J0696; J2270; J2405; J2919; J7609; A9270-GY